=== PATIENT | female | born 1975 | race Caucasian/White ===

== ENCOUNTER 2019-12-13 13:14 | Outpatient (CLI) | payer OTHER, SELFPAY ==
--- NOTE | 2019-12-13 13:21 | ECG_ITS ---
Measurements Intervals [place] Rate: 62 P: 32 CO: 166 QRS: 50 QRSD: 109 T: 37 QT: 435 QTc: 443 Interpretive Statements SINUS RHYTHM LOW QRS VOLTAGE IN LIMB LEADS BORDERLINE R WAVE PROGRESSION, ANTERIOR LEADS BORDERLINE ECG Electronically Signed On 12-13-2019 15:06:40 CDT by Anthony Linares D.O.
== END 2019-12-13 13:15 | disposition home or self-care (01) ==
LOC: ANHCARD 13:18
PROVIDERS: PCP Family Medicine; Visit Provider Nurse Practitioner Family
DX: Z01.818 Encounter for other preprocedural examination (principal)
CPT/HCPCS: 93005

== ENCOUNTER 2020-01-29 09:38 | Outpatient (CLI) | payer OTHER, SELFPAY ==
--- NOTE | ~2020-01-29 | XR_ITS ---
EXAMINATION: XR abdomen/kub 1V INDICATION: Left ureteral stone TECHNIQUE: Supine views of the abdomen were obtained on 2 radiographs. COMPARISON: 12/06/2018 FINDINGS: There is a 9 mm stone in the left proximal ureter projecting between the left L2 and L3 tra nsverse processes. Stones measuring up to 4 mm are present in the lower pole of the left kidney. Ther e are surgical changes in the left upper quadrant. Cholecystectomy clips are noted in the right upper quadrant. The bowel gas pattern is normal. IMPRESSION: 1. 9 mm stone in the left proximal ureter. 2. Left nephrolithiasis. Reviewed, dictated and finalized at location A.
== END 2020-01-29 09:39 | disposition home or self-care (01) ==
LOC: ANHIMG 09:47
PROVIDERS: PCP Family Medicine; Visit Provider Nurse Practitioner Adult Health
DX: N20.1 Calculus of ureter (principal)
CPT/HCPCS: 74018

== ENCOUNTER 2020-01-30 01:06 | Outpatient (CLI) | payer OTHER, SELFPAY ==
[2020-01-30 18:39] LABS: SARS-CoV-2 RNA PCR Negative
== END 2020-01-30 01:07 | disposition home or self-care (01) ==
LOC: ANHCOVIDDT 01:07
PROVIDERS: PCP Family Medicine; Visit Provider Urology
DX: Z01.812 Encounter for preprocedural laboratory examination (principal); Z20.828 Contact with and (suspected) exposure to other viral communicable diseases
CPT/HCPCS: 87635; C9803; U0003

== ENCOUNTER 2020-02-01 01:52 | Day surgery (SDC) | payer OTHER, SELFPAY ==
[2020-01-29 14:24] VITALS: BMI 25.8
[2020-02-01] VITALS (8 sets, daily range): BP systolic 98–130; BP diastolic 50–82; PULSE 59–71; RESP 10–20; TEMP 36.2–36.4; O2SAT 97–100
--- NOTE | ~2020-02-01 | XR_ITS ---
EXAMINATION: XR abdomen/kub 1V DATE: 02/01/2020 06:43 INDICATION: Renal stone. TECHNIQUE: A supine view of the abdomen on 2 radiographs was obtained. COMPARISON: Abdomen radiographs 01/29/2020, CT abdomen 04/21/2018 FINDINGS: There are no dilated loops of bowel. Surgical clips in the right upper quadrant are likely from cholecystectomy. There are 2 mm and 1 mm stones in right kidney. There are 3 mm and 2 mm stones in left kidney. There is a 9 mm stone in proximal left ureter. IMPRESSION: 1. Stones in the kidneys and proximal left ureter. Reviewed, dictated and finalized at location A.
--- NOTE | 2020-02-01 07:20 | WPDHPUPDATE1 ---
History and Physical Update Update Date/Time: 02/01/20 07:20 History and Physical has been reviewed, including an updated exam of the patient. There are NO changes in the patient's condition. Risks, benefits, and alternatives have been discussed and questions answered. Patient agrees to proceed with procedure. ESWL of left ureteral calculus
[2020-02-01] MEDS: LACTATED RINGERS 1,000 ML 30 ML IV CONT (07:35)
--- NOTE | 2020-02-01 07:48 | WPDANESEPPF ---
Anes - Initial Pre Proc Eval Procedure: Operation Date: 02/01/20 09:00 Proposed Procedures p Left Ureteral Extracorporeal Shock Wave Lithotripsy, Possible Cystoscopy, Possible Left Stent Placement - Darion Hubbard MD Date/Time: 02/01/20 07:48 Surgeon: Darion Hubbard MD Pre Op Diagnosis: left ureteral stone Patient Data Age: 44 Gender: F Height: 5 ft 3 in Weight: 67.6 kg Last Vital Signs Temp 36.4 C 02/01/20 07:46 Pulse 70 02/01/20 07:46 Resp 16 02/01/20 07:46 BP 101/50 L 02/01/20 07:46 Pulse Ox 100 02/01/20 07:46 Allergies Allergy/AdvReac Type Severity Reaction Status Date / Time No Known Allergies Allergy Verified 02/01/20 07:19 Home Medications Medication Instructions Recorded Confirmed Type temazepam 15 mg capsule 15 mg PO DAILY PRN #30 cap 01/02/20 02/01/20 Rx calcium carbonate 168 mg PO DAILY 01/29/20 02/01/20 History escitalopram oxalate 20 mg PO HS 01/29/20 02/01/20 History estradiol 2 mg PO HS 01/29/20 02/01/20 History [id number]-vit K 1 cap PO DAILY 01/29/20 02/01/20 History [Bariatric Multivitamins] Laboratory Tests 02/01/20 07:33 PT Pending INR Pending APTT Pending Patient hx anesthesia problems: none Family hx anesthesia problems: none PMFSH Past Medical History Medical History Anxiety Bowel obstruction Surgical History Surgical History H/O hernia repair Family History Family History Mother Family history of premature coronary heart disease Hypertension Family history of diabetes mellitus in first degree relative Patient's mother is in good health, Onset Age: 42 Family history of congestive heart failure Grandparent Family history of lung cancer Father Patient's father is in good health, Onset Age: 50 Other Diabetes mellitus Family history of cardiovascular disease Family history of malignant neoplasm Social History Social History Smoking packs per day: 0.5 Smoking cigarettes per day: 10.0 Years smoked: 12 Smoking pack-years: 6.00 Smoking status: Current every day smoker Tobacco type: cigarettes and e-cigarettes/vaping Second hand tobacco smoke exposure: No Additional smoking assessment comments: quit smoking cigarette smoking 11years ago, currently uses vapor cigarette Alcohol intake: never Spiritual care concerns: No Anes - Eval Final PreProcedure Day of Procedure 02/01/20 07:48 Patient weight: overweight Heart: regular rate and rhythm Lungs: clear to auscultation Airway: Mallampati scale class II Neurological: alert and oriented Last oral intake: >/= 8 hours ASA classification: II Emergent: no Anesthetic plan: proceed Anesthesia type and monitoring: general LMA and standard monitoring Informed Consent: The patient's anesthetic plan and its attendant risks and benefits were discussed with the patient/family/POA. Questions were solicited and answers provided to the satisfaction of the patient/family/POA.
[2020-02-01 07:50] LABS: INR 0.9; Prothrombin Time 12.1 Seconds (11.1-14.7)
[2020-02-01 07:51] LABS: Partial Thromboplastin Time 27.8 SECONDS (22.3-36.8)
[2020-02-01] MEDS: ceFAZolin 2 GM/D5W 50 ML 2 GM/50 ML BAG IVPB (09:09)
--- NOTE | 2020-02-01 09:51 | PM.PROC ---
Procedure Note - Detailed Date of procedure: 02/01/20 Pre-op diagnosis: left ureteral stone Post-op diagnosis: same Procedure performed: ESWL left ureteral calculus Description of procedure: Patient is taken to the operative suite and correctly identified. Once anesthesia was obtained the stone in the left proximal ureter was visualized in both planes. Measured approximately 9 mm. Two thousand seven hundred fifty shocks were given to the stone. There appeared to be good fragmentation. As such no stent was placed at this time. Patient is taken recovery stable condition. She will follow up in 7-10 days with KUB. Anesthesia: GLMA Surgeon: Darion Hubbard MD Drains: No Packing: No Pathology: none sent Complications: No immediate complications Condition: stable Disposition: PACU
== END 2020-02-01 12:06 | disposition home or self-care (01) ==
PROVIDERS: PCP Family Medicine; Visit Provider Urology
PROC: (CPT 50590; principal; 2020-02-01 09:00)
DX: N20.1 Calculus of ureter (principal); F41.9 Anxiety disorder, unspecified; F17.290 Nicotine dependence, other tobacco product, uncomplicated
CPT/HCPCS: 50590; 36415; 74018; 85610; 85730; J0690; J1100; J2250; J2405; J2704; J3010; J7120

== ENCOUNTER 2020-02-13 11:21 | Outpatient (CLI) | payer OTHER, SELFPAY ==
--- NOTE | ~2020-02-13 | XR_ITS ---
XR abdomen/kub 1V 02/13/2020 11:44 Indication: Left ureteral stone Procedure: KUB Comparison: Comparison to multiple prior studies sequentially, with oldest reviewed study dated 05/08. Findings: There are bilateral renal stones. No definite stones are identified in the expected course of ureters. There are cholecystectomy clips. Bowel gas pattern nonobstructive. No acute osseous abnor mality. Impression: 1: Bilateral nephrolithiasis. Reviewed, dictated and finalized at location A. Impression: 1: Bilateral nephrolithiasis.
== END 2020-02-13 11:22 | disposition home or self-care (01) ==
PROVIDERS: PCP Family Medicine; Visit Provider Nurse Practitioner Adult Health
DX: N20.1 Calculus of ureter (principal); N20.0 Calculus of kidney
CPT/HCPCS: 74018

== ENCOUNTER 2020-02-21 13:59 | Outpatient (CLI) | payer OTHER, SELFPAY ==
--- NOTE | ~2020-02-21 | CT_ITS ---
EXAMINATION: CT abdomen pelvis wo con DATE: 02/21/2020 14:19 INDICATION: Left ureteral stone. TECHNIQUE: Computed tomography (CT) of the abdomen and pelvis was performed without intravenous contr ast. Automated exposure control and iterative reconstruction technique were employed. The dose-length product was 216.27 mGy-cm. COMPARISON: CT abdomen 04/21/18, abdomen radiographs 02/13/2020, 02/01/2020, 01/29/2020 FINDINGS: The visualized portions of the lung bases are clear without pneumonia or pleural effusion. The heart size is normal. There is a small pericardial effusion. The liver is normal. There are [place] es of cholecystectomy. The spleen, pancreas, and adrenal glands are normal. There are 3 stones in rig ht kidney measuring up to 3 mm. There are 4 stones in left kidney measuring up to 3 mm. There is mild left hydronephrosis and hydroureter. There are no dilated loops of bowel. There are surgical changes in the stomach. There is a small sliding hiatal hernia. There are no pathologically enlarged lymph n odes. There is no free intraperitoneal fluid. There is scarring in anterior abdominal wall. There is mild lumbar spondylosis. IMPRESSION: 1. Mild left hydronephrosis and hydroureter, likely from recently passed stone. 2. Bilateral nonobstructing kidney stones. Reviewed, dictated and finalized at location A. [employer]AD
== END 2020-02-21 14:00 | disposition home or self-care (01) ==
PROVIDERS: PCP Family Medicine; Visit Provider Nurse Practitioner Adult Health
DX: N13.2 Hydronephrosis with renal and ureteral calculous obstruction (principal)
CPT/HCPCS: 74176

== ENCOUNTER 2020-04-14 17:37 | Outpatient (CLI) | payer OTHER, SELFPAY ==
[2020-04-14 18:00] LABS: Basophils Absolute Auto 0.1 K/mm3 (0.0-0.1); Basophils Percent Auto 1.2 % (0.2-1.2); Eosinophils Absolute Auto 0.1 K/mm3 (0-0.3); Eosinophils Percent Auto 1.8 % (0-4.4); Hematocrit 44.9 % (37.0-47.0); Immature Granulocyte Absolute 0.01 K/mm3 (0.00-0.031); Immature Granulocyte Percent A 0.2 % (0-0.5); Lymphocytes Absolute Auto 2.81 K/mm3 (0.9-3.2); Lymphocytes Percent Auto 43.2 % (18.3-44.2); Mean Corpuscular HGB Conc 33.4 g/dl (32-36); Mean Corpuscular Hemoglobin 31.3 pg (26-34); Mean Corpuscular Volume 93.5 fl (80-100); Mean Platelet Volume 10.5 fl (7.4-10.4); Monocytes Absolute Auto 0.3 K/mm3 (0.1-0.6); Neutrophils Absolute Auto 3.2 K/mm3 (1.3-6.7); Neutrophils Percent Auto 49.6 % (45.5-73.1); Platelet Count Result 209 k/mm3 (150-375); Red Cell Distribution Width 11.9 % (11.5-14.5); White Blood Count 6.5 K/mm3 (4.5-10.0)
[2020-04-14 18:45] LABS: Alanine Aminotransferase 14 U/L (4-35); Albumin Level 4.3 g/dL (3.5-5.1); Alkaline Phosphatase 54 U/L (38-126); Amylase 83 U/L (30-110); Anion Gap 3 mmol/L (8-16); Aspartate Amino Transferase 27 U/L (14-36); Bilirubin,Total 0.4 mg/dL (0.2-1.3); Blood Urea Nitrogen 14 mg/dL (7-17); Calcium 9.2 mg/dL (8.4-10.2); Carbon Dioxide 31 mmol/L (22-30); Chloride 104 mmol/L (98-107); Estimated Glomerular Filt Rate > 60; Glucose 99 mg/dL (65-105); Lipase 157 U/L (23-300); Sodium 138 mmol/L (137-145)
[2020-04-14 18:48] LABS: Potassium 3.9 mmol/L (3.4-5.0)
== END 2020-04-14 17:38 | disposition home or self-care (01) ==
LOC: ANHLAB 17:38
PROVIDERS: PCP Family Medicine; Visit Provider Nurse Practitioner Family
DX: R10.9 Unspecified abdominal pain (principal)
CPT/HCPCS: 36415; 80053; 82150; 83690; 85025

== ENCOUNTER 2020-04-15 14:35 | Outpatient (CLI) | payer OTHER, SELFPAY ==
--- NOTE | ~2020-04-15 | CT_ITS ---
EXAMINATION: CT abdomen pelvis w con DATE: 04/15/2020 14:57 INDICATION: Right lower quadrant abdominal pain for 4 to 5 months. Left lower quadrant abdominal pain and tenderness. Nausea. Constipation. TECHNIQUE: Computed tomography (CT) of the abdomen and pelvis was performed with 100 cc Omnipaque 350 intravenous contrast. Automated exposure control and iterative reconstruction technique were employe d. Exam dose: 493.53 mGy-cm total exam DLP. COMPARISON: 02/21/[address] abdomen pelvis FINDINGS: Calcified right lower lobe pulmonary granuloma and right hilar calcified lymph nodes, consi stent with old pulmonary granulomatous disease. The lung bases are clear of infiltrate or consolidation. Normal heart size. No pericardial or pleural effusion. Very small sliding hiatal hernia. Status post gastric bypass surgery. Status post cholecystectomy. No bile duct or pancreatic duct dilatation. No hepatic, splenic, pancreatic, and adrenal space-occupying mass lesion. No renal space-occupying mass lesion is evident. There are several bilateral nonobstructing renal nyasia culi. No ureteral calculus or hydroureteronephrosis. There is moderate diffuse thickening of the urin jared bladder wall; cystitis is not excluded. Normal caliber of the abdominal aorta. No intraperitoneal or retroperitoneal or pelvic mass lesion or adenopathy or ascites is evident. The appendix is not definitively localized. There is no apparent evidence of appendicitis. No bowel obstruction, bowel wall thickening, pneumatosis or intraperitoneal free air is detected. Infraumbilical midline surgical scar. No suspicious osteolytic or osteoblastic lesions. IMPRESSION: Bilateral nonobstructive nephrolithiasis Moderate thickening of the urinary bladder wall; cystitis is not excluded. Recommend clinical correla tion. Very small sliding hiatal hernia Status post gastric bypass surgery Status post cholecystectomy Reviewed, dictated and finalized at Location A. Reviewed, dictated and finalized at location A. SCRIPTION COORDINATOR IMPRESSION: Bilateral nonobstructive nephrolithiasis Moderate thickening of the urinary bladder wall; cystitis is not excluded. Manoj mmend clinical correlation. Very small sliding hiatal hernia Status post gastric bypass surgery Status post cholecystectomy
== END 2020-04-15 14:36 | disposition home or self-care (01) ==
LOC: ANHIMG 14:36
PROVIDERS: PCP Family Medicine; Visit Provider Nurse Practitioner Family
DX: R10.814 Left lower quadrant abdominal tenderness (principal); R10.811 Right upper quadrant abdominal tenderness; N20.0 Calculus of kidney; Z90.49 Acquired absence of other specified parts of digestive tract; Z98.84 Bariatric surgery status
CPT/HCPCS: 74177; Q9967

== ENCOUNTER 2020-07-04 06:40 | Outpatient (CLI) | payer OTHER, SELFPAY ==
--- NOTE | ~2020-07-04 | US_ITS ---
EXAMINATION: US abdomen complete DATE: 07/04/2020 07:41 INDICATION: Right upper quadrant abdominal pain. TECHNIQUE: Multiple grayscale and Doppler ultrasound images of the abdomen were obtained. COMPARISON: CT abdomen and pelvis 04/15/2020 FINDINGS: The visualized portions of the head, body, and tail of the pancreas are normal. The liver i s normal without focal lesion. There is normal flow in main portal vein. The gallbladder is absent. T he common duct is normal and measures 4 mm. Abdominal aorta is normal in caliber. The inferior vena c candi is obscured. The kidneys are normal in size. The spleen is normal in size. IMPRESSION: 1. No etiology for the patient's symptoms. Reviewed, dictated and finalized at location A.
[2020-07-04 08:11] LABS: Alanine Aminotransferase 13 U/L (4-35); Albumin Level 4.2 g/dL (3.5-5.1); Alkaline Phosphatase 56 U/L (38-126); Anion Gap 2 mmol/L (8-16); Aspartate Amino Transferase 25 U/L (14-36); Bilirubin,Total 0.4 mg/dL (0.2-1.3); Blood Urea Nitrogen 13 mg/dL (7-17); Carbon Dioxide 32 mmol/L (22-30); Chloride 104 mmol/L (98-107); Estimated Glomerular Filt Rate > 60; Glucose 90 mg/dL (65-105); Potassium 3.9 mmol/L (3.4-5.0); Sodium 138 mmol/L (137-145)
[2020-07-04 08:19] LABS: Basophils Absolute Auto 0.1 K/mm3 (0.0-0.1); Basophils Percent Auto 1.2 % (0.2-1.2); Eosinophils Absolute Auto 0.2 K/mm3 (0-0.3); Eosinophils Percent Auto 2.6 % (0-4.4); Hematocrit 39.8 % (37.0-47.0); Hemoglobin 13.7 g/dL (12.0-15.0); Immature Granulocyte Absolute 0.02 K/mm3 (0.00-0.031); Immature Granulocyte Percent A 0.3 % (0-0.5); Lymphocytes Absolute Auto 3.25 K/mm3 (0.9-3.2); Lymphocytes Percent Auto 49.8 % (18.3-44.2); Mean Corpuscular HGB Conc 34.4 g/dl (32-36); Mean Corpuscular Hemoglobin 31.1 pg (26-34); Mean Corpuscular Volume 90.5 fl (80-100); Mean Platelet Volume 10.5 fl (7.4-10.4); Monocytes Absolute Auto 0.4 K/mm3 (0.1-0.6); Neutrophils Absolute Auto 2.6 K/mm3 (1.3-6.7); Neutrophils Percent Auto 40.1 % (45.5-73.1); Platelet Count Result 217 k/mm3 (150-375); Red Cell Distribution Width 12.3 % (11.5-14.5); White Blood Count 6.5 K/mm3 (4.5-10.0)
== END 2020-07-04 06:41 | disposition home or self-care (01) ==
LOC: ANHIMG 06:43
PROVIDERS: PCP Family Medicine; Visit Provider Nurse Practitioner Family
DX: R10.11 Right upper quadrant pain (principal); R10.811 Right upper quadrant abdominal tenderness
CPT/HCPCS: 36415; 76700; 80053; 85025

== ENCOUNTER 2020-08-22 02:06 | Emergency (ER) | payer OTHER, SELFPAY ==
--- NOTE | ~2020-08-22 | CT_ITS ---
EXAMINATION: CT abdomen pelvis w con INDICATION: Abdominal pain TECHNIQUE: Computed tomographic images of the abdomen and pelvis were obtained after the administrati on of 100 cc of Omnipaque 350 intravenous contrast. The dose-length product (DLP) was 440.70 mGy-cm. Automated exposure control and iterative reconstruction technique were employed. COMPARISON: 04/15/2020 FINDINGS: Calcified pulmonary nodules and calcified right lymph nodes are consistent with old granulo matous disease. The heart size is normal. Calcified coronary artery atherosclerosis is noted. There i s a small sliding hiatal hernia. Surgical changes in the stomach likely reflect gastric sleeve proced ure. The gallbladder is surgically absent. There is mild enlargement of the common bile duct and cent ral intrahepatic ducts which is likely due to post cholecystectomy state. The liver, spleen, pancreas , and adrenal glands are normal. Nonobstructing stones of the kidneys measure up to 4 mm on the right . No pathologically enlarged abdominal or pelvic lymph nodes are identified. There is no free intrape ritoneal gas or evidence of bowel obstruction. There is a greater than normal number of fluid-filled, nondistended small bowel loops. IMPRESSION: 1. CT findings suggestive of enteritis. 2. Bilateral nonobstructing nephrolithiasis. Reviewed, dictated and finalized at location A.
[2020-08-22 02:13] VITALS: BP 165/86; PULSE 85; RESP 12; TEMP 36.6; O2SAT 99
[2020-08-22 02:20] VITALS: BP 153/91; PULSE 82; RESP 16; TEMP 36.6; O2SAT 98
--- NOTE | 2020-08-22 02:22 | PC.NURSE ---
Pt presents to ED with complaints of abdominal pain that onset on Tuesday. Pt states she has been experiencing nausea and sharp abdominal pain that radiates to right flank. Pt notes with extensive GI hx that includes kidney stones, frequent UTI and x1 bowel obstruction. EDMD presented to bedside. Pain is noted to be in generalized abdomen and radiating to right back. Pt states she has hx of kidney stones and has stones that have not passed at this time. Pt states abdomen is tender with palpation. Pain rated 5/10 at this time. Denies sick contacts, fever, chills, chest pain and sob at this time. Urine specimen collected as pt was able to ambulate to restroom with steady gait. Specimens sent to lab. Call button and personal items within reach. Pt advised to press call button for assistance. At this time pt is alert and oriented x4 with stable vitals and in no obvious distress; currently on phone texting.
--- NOTE | 2020-08-22 02:27 | ED.GENADULT ---
HPI - General Adult General Chief complaint: Abdominal Pain Stated complaint: abd pain with naurea Time Seen by Provider: 08/22/20 02:10 History of Present Illness HPI narrative: Patient 44-year-old female presents the emergency department with chief complaint of abdominal pain. Patient reports that yesterday she started having a cramping-like feeling over her entire abdomen reports that is not improved by anything nor is it worsened by anything. The patient states she had to try to all herself up last night in bed to try to hopefully get the pain the past which ultimately she was able to finally fall asleep. Patient reports has had some nausea with this but denies vomiting. Patient denies diarrhea the patient does report that she is a prior surgical history for an exploratory laparotomy and a hernia repair a gastric sleeve. The patient states that she is also had a prior small bowel obstruction before in the past she also reports that she has history of kidney stones patient states that this 1 feels different from her kidney stones in the past. Related Data Home Medications Medication Instructions Recorded Confirmed Bariatric Multivitamins 1 cap PO DAILY 01/29/20 07/04/20 calcium carbonate 168 mg PO DAILY 01/29/20 07/04/20 escitalopram oxalate 20 mg PO HS 01/29/20 07/04/20 estradiol 2 mg PO HS 01/29/20 07/04/20 oxybutynin chloride 10 mg 10 mg PO DAILY 07/03/20 07/04/20 tablet,extended release 24 hr Allergies Allergy/AdvReac Type Severity Reaction Status Date / Time No Known Allergies Allergy Verified 08/22/20 04:46 Review of Systems Review of Systems: Narrative: A 10 system review of systems was completed on the patient and is negative except for what is stated in the HPI. Nursing and ancillary documentation was reviewed. [facility] Past Medical History Medical History Acute bronchitis due to infection Acute left ankle pain Acute pain of left knee Acute pain of right knee Anxiety Arthralgia of temporomandibular joint, unspecified side BMI 26.0-26.9,adult Body mass index [BMI] 45.0-49.9, adult (02/02/16) Bowel obstruction Dietary counseling and surveillance (08/18/17) Dyspnea on exertion Elevated glucose Elevated sed rate Encounter for screening for diabetes mellitus Epigastric abdominal pain Essential (primary) hypertension Excessive sweating Family hx of colon cancer Fatty liver Foreign body in left ear, initial encounter Ganglion cyst Gastroenteritis Hiatal hernia Incisional hernia with obstruction but no gangrene Incisional hernia without obstruction or gangrene Infection Insomnia Irritable bowel syndrome with diarrhea Left hand pain Left wrist pain Low vitamin D level Lung nodule Mass of left foot Morbid obesity Myalgia and myositis Nodule of finger of right hand Numbness of left hand SHANI (obstructive sleep apnea) Other symptoms and signs involving emotional state Paresthesia Prediabetes Renal cyst Right foot pain Right ovarian cyst Right-sided chest wall pain Routine physical examination RUQ pain Screening for colon cancer Screening for lipid disorders Screening for thyroid disorder Tension headache Thinning hair Umbilical hernia without obstruction and without gangrene Urinary symptom or sign Vitamin B 12 deficiency Weight gain Surgical History Surgical History H/O hernia repair Family History Family History Mother Family history of premature coronary heart disease Hypertension Family history of diabetes mellitus in first degree relative Patient's mother is in good health, Onset Age: 42 Family history of congestive heart failure Grandparent Family history of lung cancer Father Patient's father is in good health, Onset Age: 50 Sibling No problems noted.
[2020-08-22] MEDS: SODIUM CHLORIDE 0.9% IV 1,000 ML 999 ML IV CONT (02:39)
[2020-08-22] MEDS: ONDANSETRON INJ 4 MG/2 ML VIAL IV PUSH (02:41)
[2020-08-22] MEDS: DICYCLOMINE HCL INJ 20 MG/2 ML VIAL IM (02:41)
[2020-08-22] MEDS: MORPHINE SULFATE (*CRX) 4 MG/ML INJ IV PUSH ×2 (02:41→03:28)
[2020-08-22 02:59] LABS: Basophils Absolute Auto 0.1 K/mm3 (0.0-0.1); Basophils Percent Auto 1.1 % (0.2-1.2); Eosinophils Absolute Auto 0.2 K/mm3 (0-0.3); Hematocrit 44.3 % (37.0-47.0); Hemoglobin 15.3 g/dL (12.0-15.0); Immature Granulocyte Absolute 0.02 K/mm3 (0.00-0.031); Immature Granulocyte Percent A 0.3 % (0-0.5); Lymphocytes Absolute Auto 3.49 K/mm3 (0.9-3.2); Lymphocytes Percent Auto 43.8 % (18.3-44.2); Mean Corpuscular HGB Conc 34.5 g/dl (32-36); Mean Corpuscular Hemoglobin 31.8 pg (26-34); Mean Corpuscular Volume 92.1 fl (80-100); Mean Platelet Volume 10.4 fl (7.4-10.4); Monocytes Absolute Auto 0.4 K/mm3 (0.1-0.6); Monocytes Percent Auto 5.1 % (2.6-8.5); Neutrophils Absolute Auto 3.8 K/mm3 (1.3-6.7); Neutrophils Percent Auto 47.7 % (45.5-73.1); Platelet Count Result 218 k/mm3 (150-375); Red Blood Count 4.81 M/mm3 (4.2-5.4); Red Cell Distribution Width 11.8 % (11.5-14.5)
[2020-08-22 03:10] LABS: Add Urine Microscopic? NO; Appearance Urine Clear (Clear); Bacteria Urine 2+ /hpf; Bilirubin Urine Negative (Negative); Blood Urine Negative (Negative); Color Urine Straw (Yellow); Glucose Urine UA Negative (Negative); Ketones Urine Negative (Negative); Leukocyte Esterase Ur Negative LEU/UL (Negative); Nitrate Urine Negative (Negative); Protein Urine Negative (Negative); RBC Urine 0-2 /hpf (0-2); Squamous Epithelial Cell Urine Rare /hpf (Few); Urobilinogen Urine Negative mg/dL (<2.0); WBC Urine 0-3 /hpf
[2020-08-22 03:11] LABS: Alanine Aminotransferase 14 U/L (4-35); Albumin Level 4.4 g/dL (3.5-5.1); Alkaline Phosphatase 57 U/L (38-126); Anion Gap 5 mmol/L (8-16); Aspartate Amino Transferase 25 U/L (14-36); Bilirubin,Total 0.3 mg/dL (0.2-1.3); Blood Urea Nitrogen 13 mg/dL (7-17); Calcium 9.3 mg/dL (8.4-10.2); Carbon Dioxide 30 mmol/L (22-30); Chloride 106 mmol/L (98-107); Estimated Glomerular Filt Rate > 60; Glucose 97 mg/dL (65-105); Lactic Acid Reflex 1.1 mmol/L (0.7-2.1); Lipase 180 U/L (23-300); Potassium 3.8 mmol/L (3.4-5.0); Sodium 141 mmol/L (137-145)
[2020-08-22 03:13] LABS: Specific Grav Ur 1.003 (1.001-1.035)
--- NOTE | 2020-08-22 03:13 | PC.NURSE ---
Pt resting on cart in its lowest position with call button and personal items within reach. No complaints or concerns voiced at this time. Pain has improved from 8/10 and is now 6/10; will inform EDMD that pain persists. Vitals remain stable and pt is alert and oriented x4. Advised to press call button for assistance.
[2020-08-22 03:17] VITALS: BP 125/85; PULSE 56; RESP 12; O2SAT 97
--- NOTE | 2020-08-22 03:17 | PC.NURSE ---
EDMD notified of persistent pain and states he will place orders.
--- NOTE | 2020-08-22 03:29 | PC.NURSE ---
Medication administered and pt resting on cart in its lowest position with no complaints or concerns voiced at this time. Call button and personal items within reach; advised to press call button for assistance.
--- NOTE | 2020-08-22 03:44 | PC.NURSE ---
Pt to radiology via cart.
--- NOTE | 2020-08-22 03:55 | PC.NURSE ---
Pt returned from radiology. Call button and personal items within reach. Advised to pres call button for assistance.
[2020-08-22] MEDS: HYDROmorphone HCL INJ (*CRX) 1 MG/ML SYR IV PUSH (04:10)
[2020-08-22 04:21] VITALS: BP 123/74; PULSE 73; RESP 17; O2SAT 97
--- NOTE | 2020-08-22 04:23 | PC.NURSE ---
Pt resting on cart in its lowest position with call button and personal items within reach. Pt remains alert and oriented x4 with stable vitals and is not in any obvious distress at this time. Advised to press call button for assistance.
--- NOTE | 2020-08-22 04:42 | PC.NURSE ---
EDMD at bedside to update pt on poc and all questions and concerns addressed. Pt states pain has is improved and is now rated 2/10 at this time; no complaints or concerns voiced. Continues resting on cart in its lowest position with call button and personal items within reach. Advised to press call button for assistance.
[2020-08-22 05:18] VITALS: BP 139/92; PULSE 74; RESP 16; TEMP 36.7; O2SAT 99
[2020-08-22 05:21] VITALS: BP 139/92; PULSE 74; RESP 16; TEMP 36.7; O2SAT 99
== END 2020-08-22 05:27 | disposition home or self-care (01) ==
PROVIDERS: Emergency Provider Emergency Medicine; PCP Family Medicine
DX: K56.7 Ileus, unspecified (principal); K29.00 Acute gastritis without bleeding; R10.84 Generalized abdominal pain; F17.290 Nicotine dependence, other tobacco product, uncomplicated; I10 Essential (primary) hypertension; K58.0 Irritable bowel syndrome with diarrhea; E66.01 Morbid (severe) obesity due to excess calories; G47.33 Obstructive sleep apnea (adult) (pediatric); R73.03 Prediabetes; E53.8 Deficiency of other specified B group vitamins
CPT/HCPCS: 36415; 74177; 80053; 81003; 81025; 83605; 83690; 85025; 96361; 96372; 96374; 96375; 96376; 99284; J0500; J1170; J2270; J2405; J7030; Q9967

== ENCOUNTER 2020-11-17 01:03 | Day surgery (SDC) | payer OTHER, SELFPAY ==
[2020-11-04 08:21] VITALS: BMI 26.5
[2020-11-17 07:46] VITALS: BP 127/61; PULSE 59; RESP 16; TEMP 36.3; O2SAT 100
[2020-11-17] MEDS: LACTATED RINGERS 1,000 ML 150 ML IV CONT (07:55)
--- NOTE | 2020-11-17 08:00 | WPDANESEPPF ---
Anes - Initial Pre Proc Eval Procedure: Operation Date: 11/17/20 08:30 Proposed Procedures p Esophagogastroduodenoscopy - Darren Banks MD Date/Time: 11/17/20 08:00 Surgeon: Darren Banks MD Pre Op Diagnosis: nausea, abnormal CAT scan, Patient Data Age: 45 Gender: F Height: 1.6 m Weight: 70.9 kg Last Vital Signs Temp 36.3 C L 11/17/20 07:46 Pulse 59 L 11/17/20 07:46 Resp 16 11/17/20 07:46 BP 127/61 11/17/20 07:46 Pulse Ox 100 11/17/20 07:46 Allergies Allergy/AdvReac Type Severity Reaction Status Date / Time No Known Allergies Allergy Verified 11/17/20 07:45 Home Medications Medication Instructions Recorded Confirmed Type Bariatric Multivitamins 1 cap PO DAILY 01/29/20 11/17/20 History calcium carbonate 168 mg PO DAILY 01/29/20 11/17/20 History escitalopram oxalate 20 mg PO HS 01/29/20 11/17/20 History estradiol 2 mg PO HS 01/29/20 11/17/20 History temazepam 15 mg capsule 15 mg PO DAILY PRN #30 cap 06/09/20 11/17/20 Rx oxybutynin chloride 10 mg 10 mg PO DAILY 07/03/20 11/17/20 History tablet,extended release 24 hr dicyclomine 20 mg PO QID PRN #20 tablet 08/22/20 11/17/20 Rx ondansetron 4 mg PO Q8H PRN #20 tablet 08/22/20 11/17/20 Rx omeprazole 20 mg capsule,delayed 20 mg PO DAILY #30 cap 09/01/20 11/17/20 Rx release Patient hx anesthesia problems: none Family hx anesthesia problems: none PMFSH Past Medical History Medical History Acute bronchitis due to infection Acute left ankle pain Acute pain of left knee Acute pain of right knee Anxiety Arthralgia of temporomandibular joint, unspecified side BMI 26.0-26.9,adult Body mass index [BMI] 45.0-49.9, adult (02/02/16) Bowel obstruction Dietary counseling and surveillance (08/18/17) Dyspnea on exertion Elevated glucose Elevated sed rate Encounter for screening for diabetes mellitus Epigastric abdominal pain Essential (primary) hypertension Excessive sweating Family hx of colon cancer Fatty liver Foreign body in left ear, initial encounter Ganglion cyst Gastroenteritis Hiatal hernia Incisional hernia with obstruction but no gangrene Incisional hernia without obstruction or gangrene Infection Insomnia Irritable bowel syndrome with diarrhea Left hand pain Left wrist pain Low vitamin D level Lung nodule Mass of left foot Morbid obesity Myalgia and myositis Nodule of finger of right hand Numbness of left hand SHANI (obstructive sleep apnea) Other symptoms and signs involving emotional state Overweight with body mass index (BMI) 25.0-29.9 Paresthesia Prediabetes Renal cyst Right foot pain Right ovarian cyst Right-sided chest wall pain Routine physical examination RUQ pain Screening for colon cancer Screening for lipid disorders Screening for thyroid disorder Tension headache Thinning hair Umbilical hernia without obstruction and without gangrene Urinary symptom or sign Vitamin B 12 deficiency Weight gain Surgical History Surgical History (Updated 11/17/20 @ 08:00 by Bradford Colón MD) H/O hernia repair History of gastric surgery Family History Family History Mother Family history of premature coronary heart disease Hypertension Family history of diabetes mellitus in first degree relative Patient's mother is in good health, Onset Age: 42 Family history of congestive heart failure Grandparent Family history of lung cancer Father Patient's father is in good health, Onset Age: 50 Sibling No problems noted. Other Diabetes mellitus Family history of cardiovascular disease Family history of malignant neoplasm Social History Social History Smoking packs per day: 0.5 Smoking cigarettes per day: 10.0 Years smoked: 12 Smoking pack-years: 6.00 Smoking status: F
--- NOTE | 2020-11-17 08:26 | PM.HPGS ---
History of Present Illness History of Present Illness Consent: Risks, benefits, and alternatives have been discussed and questions answered. Patient agrees to proceed with procedure. Chief complaint: nausea, abnormal CAT scan, Narrative: Kesha Downey is a 45 year old female with intermittent upper abdominal pain and nausea, she had cholecystectomy and gastric sleeve, using omeprazole and zofran, denies smoking. Review of Systems Constitutional: Constitutional: Denies headache(s) and Denies weakness Eyes: Eyes: Denies blurry vision ENT: Reports Normal hearing present, Denies headache(s) and Denies neck pain Cardiovascular: Cardiovascular: Denies chest pain and Denies dyspnea Respiratory: Respiratory: Denies dyspnea Gastrointestinal: Gastrointestinal: Reports no additional gastrointestinal complaints Genitourinary: Genitourinary: Denies dysuria Musculoskeletal: Musculoskeletal: Denies neck pain Integumentary/Breasts: Skin/Breast: Denies dry skin Neurologic: Reports Normal hearing present, Denies headache(s) and Denies weakness Psychiatric: Psychiatric: Denies anxiety Endocrine: Endocrine: Denies change in body appearance Hematologic/Lymphatic: Hematologic/Lymphatic: Denies easy bleeding Allergic/Immunologic: Allergic/Immunologic: Denies urticaria PMFSH Past Medical History Medical History Acute bronchitis due to infection Acute left ankle pain Acute pain of left knee Acute pain of right knee Anxiety Arthralgia of temporomandibular joint, unspecified side BMI 26.0-26.9,adult Body mass index [BMI] 45.0-49.9, adult (02/02/16) Bowel obstruction Dietary counseling and surveillance (08/18/17) Dyspnea on exertion Elevated glucose Elevated sed rate Encounter for screening for diabetes mellitus Epigastric abdominal pain Essential (primary) hypertension Excessive sweating Family hx of colon cancer Fatty liver Foreign body in left ear, initial encounter Ganglion cyst Gastroenteritis Hiatal hernia Incisional hernia with obstruction but no gangrene Incisional hernia without obstruction or gangrene Infection Insomnia Irritable bowel syndrome with diarrhea Left hand pain Left wrist pain Low vitamin D level Lung nodule Mass of left foot Morbid obesity Myalgia and myositis Nodule of finger of right hand Numbness of left hand SHANI (obstructive sleep apnea) Other symptoms and signs involving emotional state Overweight with body mass index (BMI) 25.0-29.9 Paresthesia Prediabetes Renal cyst Right foot pain Right ovarian cyst Right-sided chest wall pain Routine physical examination RUQ pain Screening for colon cancer Screening for lipid disorders Screening for thyroid disorder Tension headache Thinning hair Umbilical hernia without obstruction and without gangrene Urinary symptom or sign Vitamin B 12 deficiency Weight gain Surgical History Surgical History (Updated 11/17/20 @ 08:00 by Bradford Colón MD) H/O hernia repair History of gastric surgery Family History Family History Mother Family history of premature coronary heart disease Hypertension Family history of diabetes mellitus in first degree relative Patient's mother is in good health, Onset Age: 42 Family history of congestive heart failure Grandparent Family history of lung cancer Father Patient's father is in good health, Onset Age: 50 Sibling No problems noted. Other Diabetes mellitus Family history of cardiovascular disease Family history of malignant neoplasm Social History Social History Smoking packs per day: 0.5 Smoking cigarettes per day: 10.0 Years smoked: 12 Smoking pack-years: 6.00 Smoking status: Former smoker Tobacco type: cigarettes Second hand tobacco smoke exposure: No Additional smoking asse
[2020-11-17] MEDS: BENZOCAINE (*SP) 60 ML SPRAY CAN (HURRICAINE) 1 SPRAY MUCOUS MEM (08:31)
[2020-11-17 08:46] VITALS: BP 95/56; PULSE 57; RESP 21; O2SAT 100
[2020-11-17 08:56] VITALS: BP 93/53; PULSE 55; RESP 19; O2SAT 100
[2020-11-17 09:06] VITALS: BP 101/63; PULSE 52; RESP 16; O2SAT 100
== END 2020-11-17 09:18 | disposition home or self-care (01) ==
PROVIDERS: PCP Family Medicine; Visit Provider Internal Medicine Gastroenterology
PROC: 0DJ08ZZ Inspection of Upper Intestinal Tract, Via Natural or Artificial Opening Endoscopic (ICD-10-PCS; CPT 43235; principal; 2020-11-17 08:30)
DX: K29.50 Unspecified chronic gastritis without bleeding (principal); R11.0 Nausea; R10.11 Right upper quadrant pain; K44.9 Diaphragmatic hernia without obstruction or gangrene; K22.2 Esophageal obstruction; Z98.84 Bariatric surgery status; Z90.49 Acquired absence of other specified parts of digestive tract; I10 Essential (primary) hypertension; Z80.0 Family history of malignant neoplasm of digestive organs; K76.0 Fatty (change of) liver, not elsewhere classified; K58.0 Irritable bowel syndrome with diarrhea; E55.9 Vitamin D deficiency, unspecified; G47.33 Obstructive sleep apnea (adult) (pediatric); R73.03 Prediabetes; E53.8 Deficiency of other specified B group vitamins; F41.9 Anxiety disorder, unspecified; F17.290 Nicotine dependence, other tobacco product, uncomplicated
CPT/HCPCS: 43239; 43249; 88305; J2001; J2704; J7120

== ENCOUNTER 2020-12-23 07:45 | Outpatient (CLI) | payer OTHER, SELFPAY ==
--- NOTE | ~2020-12-23 | XR_ITS ---
EXAMINATION: XR barium swallow w SBFT DATE: 12/23/2020 09:20 INDICATION: Right upper quadrant abdominal pain. TECHNIQUE: The patient drank thick barium, gas-producing crystals, and thin barium. Fluoroscopy of th e esophagus, stomach, and small bowel was performed. Fluoroscopy exposure time was 0.7 minutes. Radio graphs of the abdomen were obtained. The total number of images was 191. COMPARISON: CT abdomen and pelvis 08/22/20 FINDINGS: DOUBLE CONTRAST ESOPHAGRAM: There is no mass or stricture of the esophagus. Esophageal motility is normal. There is a small slidi ng hiatal hernia. There are changes of gastric sleeve procedure. SMALL BOWEL SERIES: The small bowel shows a normal folding pattern. Transit time to the colon was 45 minutes. Surgical cl ips in the right upper quadrant are likely from cholecystectomy. IMPRESSION: 1. Small sliding hiatal hernia. 2. Gastric sleeve procedure. 3. Normal small bowel. Reviewed, dictated and finalized at location A.
== END 2020-12-23 07:46 | disposition home or self-care (01) ==
PROVIDERS: PCP Family Medicine; Visit Provider Nurse Practitioner Family
DX: R10.11 Right upper quadrant pain (principal); R93.3 Abnormal findings on diagnostic imaging of other parts of digestive tract; Z98.84 Bariatric surgery status; K44.9 Diaphragmatic hernia without obstruction or gangrene
CPT/HCPCS: 74240

== ENCOUNTER 2021-01-26 00:04 | Emergency (ER) | payer OTHER, SELFPAY ==
--- NOTE | ~2021-01-26 | CT_ITS ---
EXAMINATION: CT abdomen pelvis wo con DATE: 01/26/2021 00:41 INDICATION: Flank pain. History of renal stones. TECHNIQUE: Computed tomography (CT) of the abdomen and pelvis was performed without intravenous contr ast. The dose-length product was 203.53 mGy-cm. Automated exposure control and iterative reconstructi on technique were employed. COMPARISON: CT dated 08/22/2020. FINDINGS: Lung bases are unremarkable. No significant pleural or pericardial effusion. Heart size is normal. Small hiatal hernia with surgical changes of the stomach. Status post cholecystectomy. Splenomegaly. There are nonobstructing bilateral renal stones. There is a 4 mm distal left ureteral stone in the pelvis with moderate left hydronephrosis. There are cholecys tectomy clips. There is bladder wall thickening diffusely. No free fluid or free air. There are surgi nyasia changes in the anterior abdominal wall. No acute osseous abnormality. IMPRESSION: 1. Distal left ureteral stone in the pelvis measuring 4 mm with moderate hydronephrosis. 2: Nonobstructing bilateral nephrolithiasis. 3: Nonspecific circumferential bladder wall thickening. Cannot exclude cystitis. Recommend correlati on with urinalysis. Reviewed, dictated and finalized at location A. IMPRESSION: 1. Distal left ureteral stone in the pelvis measuring 4 mm with moderate hydron ephrosis. 2: Nonobstructing bilateral nephrolithiasis. 3: Nonspecific circumferential bladder wall thickening. Cannot exclude cystiti s. Recommend correlation with urinalysis.
--- NOTE | 2021-01-26 00:21 | ED.GENADULT ---
HPI - General Adult General Chief complaint: Abdominal Pain Stated complaint: Left flank pain Time Seen by Provider: 01/26/21 00:14 History of Present Illness HPI narrative: Patient 45-year-old female presents to emergency department chief complaint of flank pain and abdominal pain. The patient reports that she has had prior history of kidney stones is required lithotripsy before in the past. Patient states that earlier this week she started having some suprapubic pressure and noticed that it was burning whenever she urinated the patient saw her primary care physician who started her on antibiotics and reports tonight she started having severe flank pain nausea. Patient reports that he was unable to get comfortable and was pacing around the room. Related Data Home Medications Medication Instructions Recorded Confirmed Bariatric Multivitamins 1 cap PO DAILY 01/29/20 01/21/21 calcium carbonate 168 mg PO DAILY 01/29/20 01/21/21 escitalopram oxalate 20 mg PO HS 01/29/20 01/21/21 estradiol 2 mg PO HS 01/29/20 01/21/21 oxybutynin chloride 10 mg 10 mg PO DAILY 07/03/20 01/21/21 tablet,extended release 24 hr Allergies Allergy/AdvReac Type Severity Reaction Status Date / Time No Known Allergies Allergy Verified 01/21/21 10:35 Review of Systems Review of Systems: A 10 system review of systems was completed on the patient and is negative except for what is stated in the HPI. Nursing and ancillary documentation was reviewed. [facility] Past Medical History Medical History Acute bronchitis due to infection Acute left ankle pain Acute pain of left knee Acute pain of right knee Anxiety Arthralgia of temporomandibular joint, unspecified side BMI 26.0-26.9,adult Body mass index [BMI] 45.0-49.9, adult (02/02/16) Bowel obstruction Dietary counseling and surveillance (08/18/17) Dyspnea on exertion Elevated glucose Elevated sed rate Encounter for screening for diabetes mellitus Epigastric abdominal pain Essential (primary) hypertension Excessive sweating Family hx of colon cancer Fatty liver Foreign body in left ear, initial encounter Ganglion cyst Gastroenteritis Hiatal hernia Incisional hernia with obstruction but no gangrene Incisional hernia without obstruction or gangrene Infection Insomnia Irritable bowel syndrome with diarrhea Left hand pain Left wrist pain Low vitamin D level Lung nodule Mass of left foot Morbid obesity Myalgia and myositis Nodule of finger of right hand Numbness of left hand SHANI (obstructive sleep apnea) Other symptoms and signs involving emotional state Overweight with body mass index (BMI) 25.0-29.9 Paresthesia Prediabetes Renal cyst Right foot pain Right ovarian cyst Right-sided chest wall pain Routine physical examination RUQ pain Screening for colon cancer Screening for lipid disorders Screening for thyroid disorder Tension headache Thinning hair Umbilical hernia without obstruction and without gangrene Urinary symptom or sign Vitamin B 12 deficiency Weight gain Surgical History Surgical History H/O hernia repair History of gastric surgery Family History Family History Mother Family history of premature coronary heart disease Hypertension Family history of diabetes mellitus in first degree relative Patient's mother is in good health, Onset Age: 42 Family history of congestive heart failure Grandparent Family history of lung cancer Father Patient's father is in good health, Onset Age: 50 Sibling Hypertension Obesity Other Diabetes mellitus Family history of cardiovascular disease Family history of malignant neoplasm Social History Social History Smoking packs per day: 0.5 Smoking
[2021-01-26 01:00] LABS: Basophils Absolute Auto 0.1 K/mm3 (0.0-0.1); Basophils Percent Auto 1.1 % (0.2-1.2); Eosinophils Absolute Auto 0.2 K/mm3 (0-0.3); Eosinophils Percent Auto 2.4 % (0-4.4); Hemoglobin 13.1 g/dL (12.0-15.0); Immature Granulocyte Absolute 0.01 K/mm3 (0.00-0.031); Immature Granulocyte Percent A 0.2 % (0-0.5); Lymphocytes Absolute Auto 2.84 K/mm3 (0.9-3.2); Lymphocytes Percent Auto 46.1 % (18.3-44.2); Mean Corpuscular HGB Conc 34.5 g/dl (32-36); Mean Corpuscular Hemoglobin 31.7 pg (26-34); Mean Platelet Volume 10.3 fl (7.4-10.4); Monocytes Absolute Auto 0.3 K/mm3 (0.1-0.6); Monocytes Percent Auto 5.5 % (2.6-8.5); Neutrophils Absolute Auto 2.8 K/mm3 (1.3-6.7); Neutrophils Percent Auto 44.7 % (45.5-73.1); Platelet Count Result 198 k/mm3 (150-375); Red Blood Count 4.13 M/mm3 (4.2-5.4); Red Cell Distribution Width 11.7 % (11.5-14.5); White Blood Count 6.2 K/mm3 (4.5-10.0)
[2021-01-26 01:13] LABS: Add Urine Microscopic? YES; Appearance Urine Clear (Clear); Bacteria Urine Trace /hpf; Bilirubin Urine Negative (Negative); Blood Urine 1+ (Negative); Color Urine Yellow (Yellow); Glucose Urine UA Negative (Negative); Ketones Urine Negative (Negative); Leukocyte Esterase Ur Trace LEU/UL (Negative); Mucus Urine Rare /lpf; Nitrate Urine Negative (Negative); Protein Urine 1+ mg/dL (Negative); RBC Urine >75 /hpf (0-2); Specific Grav Ur 1.021 (1.001-1.035); Squamous Epithelial Cell Urine Occasional /hpf (Few); Urobilinogen Urine Negative mg/dL (<2.0); WBC Urine 31-50 /hpf
[2021-01-26] MEDS: MORPHINE SULFATE (*CRX) 4 MG/ML INJ IV PUSH (01:16)
[2021-01-26] MEDS: SODIUM CHLORIDE 0.9% IV 1,000 ML 999 ML IV CONT (01:16)
[2021-01-26 01:17] VITALS: BP 130/78; PULSE 77; RESP 18; TEMP 36.7; O2SAT 100
[2021-01-26] MEDS: ONDANSETRON INJ 4 MG/2 ML VIAL IV PUSH (01:17)
[2021-01-26 01:22] LABS: Alanine Aminotransferase 18 U/L (4-35); Albumin Level 4.5 g/dL (3.5-5.1); Alkaline Phosphatase 58 U/L (38-126); Anion Gap 7 mmol/L (8-16); Aspartate Amino Transferase 37 U/L (14-36); Bilirubin,Total 0.5 mg/dL (0.2-1.3); Blood Urea Nitrogen 17 mg/dL (7-17); Carbon Dioxide 29 mmol/L (22-30); Chloride 103 mmol/L (98-107); Estimated CRCL calculation 104 ml/min; Estimated Glomerular Filt Rate > 60; Glucose 128 mg/dL (65-110); Lipase 250 U/L (23-300); Sodium 139 mmol/L (137-145)
[2021-01-26] MEDS: HYDROmorphone HCL INJ (*CRX) 1 MG/ML SYR IV PUSH ×2 (02:25→03:52)
[2021-01-26 03:00] VITALS: BP 126/70; PULSE 77; RESP 18; O2SAT 99
[2021-01-26 03:53] VITALS: BP 130/70; PULSE 77; RESP 18; O2SAT 99
== END 2021-01-26 04:06 | disposition home or self-care (01) ==
PROVIDERS: Emergency Provider Emergency Medicine; PCP Family Medicine
DX: N20.0 Calculus of kidney (principal); N39.0 Urinary tract infection, site not specified; F17.210 Nicotine dependence, cigarettes, uncomplicated; Z87.442 Personal history of urinary calculi
CPT/HCPCS: 36415; 74176; 80053; 81001; 81025; 83690; 85025; 87086; 87147; 87181; 87186; 96361; 96365; 96375; 96376; 99284; J0696; J1170; J2270; J2405; J7030

== ENCOUNTER 2021-01-29 00:17 | Day surgery (SDC) | payer OTHER, SELFPAY ==
[2021-01-28 12:30] VITALS: BMI 27.4
[2021-01-29] VITALS (8 sets, daily range): BP systolic 100–121; BP diastolic 55–72; PULSE 57–77; RESP 10–20; TEMP 36.3–36.6; O2SAT 98–100
--- NOTE | ~2021-01-29 | XR_ITS ---
EXAMINATION: XR retrograde pyelo w/stent LT DATE: 01/29/2021 13:28 INDICATION: Left ureteral stone and hydronephrosis. TECHNIQUE: 4 fluoroscopic images of the abdomen and pelvis were obtained during procedure performed scar Hubbard. Radiologist was not present for the imaging or procedure. The amount of fluoroscopy t isis used during this procedure was 0.4 minutes. Total DAP was 0.208 mGycm^2 COMPARISON: CT dated 01/26/2021 FINDINGS: Retrograde contrast desiccation of the left renal collecting system and ureter demonstrates mild left hydroureteronephrosis. A wire has been advanced into the left renal pelvis. Subsequently there is pl acement of a left intrarenal stent with loops formed in the left renal pelvis and in the bladder. See procedure note for further detail. IMPRESSION: 1. Fluoroscopy utilized during left internal ureteral stent placement. Reviewed, dictated and finalized at location A.
[2021-01-29] MEDS: LACTATED RINGERS 1,000 ML 30 ML IV CONT ×2 (11:20→13:25)
--- NOTE | 2021-01-29 11:49 | WPDANESEPPF ---
Anes - Initial Pre Proc Eval Procedure: Operation Date: 01/29/21 12:30 Proposed Procedures p Cystoscopy, Left Ureteroscopy, Left Stone Extraction, Possible Left Retrograde Pyelogram, Possible Left Stent Placement, - Darion Hubbard MD s Possible Holmium Laser Procedure - Darion Hubbard MD Date/Time: 01/29/21 11:49 Surgeon: Darion Hubbard MD Pre Op Diagnosis: left ureteral stone Patient Data Age: 45 Gender: F Height: 1.6 m Weight: 72.6 kg Last Vital Signs Temp 36.6 C 01/29/21 10:50 Pulse 57 L 01/29/21 10:50 Resp 20 01/29/21 10:50 BP 121/72 01/29/21 10:50 Pulse Ox 99 01/29/21 10:50 Allergies Allergy/AdvReac Type Severity Reaction Status Date / Time No Known Allergies Allergy Verified 01/29/21 10:44 Home Medications Medication Instructions Recorded Confirmed Type Bariatric Multivitamins 1 cap PO DAILY 01/29/20 01/29/21 History calcium carbonate 168 mg PO DAILY 01/29/20 01/29/21 History escitalopram oxalate 20 mg PO HS 01/29/20 01/29/21 History estradiol 2 mg PO HS 01/29/20 01/29/21 History temazepam 15 mg capsule 15 mg PO DAILY PRN #30 cap 06/09/20 01/29/21 Rx oxybutynin chloride 10 mg 10 mg PO DAILY 07/03/20 01/29/21 History tablet,extended release 24 hr dicyclomine 20 mg PO QID PRN #20 tablet 08/22/20 01/28/21 Rx omeprazole 20 mg capsule,delayed 20 mg PO DAILY #30 cap 09/01/20 01/29/21 Rx release hydrocodone-acetaminophen 1 tablet PO Q6H PRN 3 Days #12 01/26/21 01/29/21 Rx tablet ondansetron 4 mg PO Q8H PRN #10 tablet 01/26/21 01/29/21 Rx tamsulosin [Flomax] 0.4 mg PO DAILY #10 cap 01/26/21 01/29/21 Rx nitrofurantoin monohyd/m-cryst 1 cap PO BID 01/29/21 01/29/21 History Patient hx anesthesia problems: none Family hx anesthesia problems: none Results Review: All pre-operative results and documents have been reviewed as part of the pre-operative evaluation. [facility] Past Medical History Medical History Acute bronchitis due to infection Acute left ankle pain Acute pain of left knee Acute pain of right knee Anxiety Arthralgia of temporomandibular joint, unspecified side BMI 26.0-26.9,adult Body mass index [BMI] 45.0-49.9, adult (02/02/16) Bowel obstruction Dietary counseling and surveillance (08/18/17) Dyspnea on exertion Elevated glucose Elevated sed rate Encounter for screening for diabetes mellitus Epigastric abdominal pain Essential (primary) hypertension Excessive sweating Family hx of colon cancer Fatty liver Foreign body in left ear, initial encounter Ganglion cyst Gastroenteritis Hiatal hernia Incisional hernia with obstruction but no gangrene Incisional hernia without obstruction or gangrene Infection Insomnia Irritable bowel syndrome with diarrhea Left hand pain Left wrist pain Low vitamin D level Lung nodule Mass of left foot Morbid obesity Myalgia and myositis Nodule of finger of right hand Numbness of left hand SHANI (obstructive sleep apnea) Other symptoms and signs involving emotional state Overweight with body mass index (BMI) 25.0-29.9 Paresthesia Prediabetes Renal cyst Right foot pain Right ovarian cyst Right-sided chest wall pain Routine physical examination RUQ pain Screening for colon cancer Screening for lipid disorders Screening for thyroid disorder Tension headache Thinning hair Umbilical hernia without obstruction and without gangrene Urinary symptom or sign Vitamin B 12 deficiency Weight gain Surgical History Surgical History H/O hernia repair History of gastric surgery Family History Family History Mother Family history of premature coronary heart disease Hypertension Family history of diabetes mellitus in first degree relative Patient's mother is in good health, Onset Age: 42 Family history of congestive heart failure Decea
--- NOTE | 2021-01-29 12:15 | WPDHPUPDATE1 ---
History and Physical Update Update Date/Time: 01/29/21 12:15 History and Physical has been reviewed, including an updated exam of the patient. There are NO changes in the patient's condition. Risks, benefits, and alternatives have been discussed and questions answered. Patient agrees to proceed with procedure.
[2021-01-29] MEDS: ceFAZolin 2 GM/D5W 50 ML 2 GM/50 ML BAG IVPB (12:28)
[2021-01-29] MEDS: LIDOCAINE HCL 2% GEL UROJET 10 ML PKG MUCOUS MEM (12:28)
--- NOTE | 2021-01-29 13:20 | W.PM.PROC2 ---
Procedure Note - Detailed Date of Procedure 01/29/21 Pre-op Diagnosis left ureteral stone Post-op Diagnosis same Procedure Performed Cystoscopy, left retrograde pyelogram, left ureteroscopy with stone extraction, left ureteral stent placement 4.8 Iraqi contour Surgeon Darion Hubbard MD Anesthesia general Description of Procedure Patient is taken to the operative suite and correctly identified. Once anesthesia was obtained she was placed in dorsal lithotomy position and prepped and draped usual sterile fashion. Twenty-two Iraqi scope inserted the bladder. There is no tumors noted. Left ureteral orifice was cannulated with a guidewire. We dilated with an 8/10 dilator. Rigid ureteral scope was then inserted. The stone was visualized and grasped with an escape basket. Was sent for analysis. Pyelogram was then performed to confirm placement of the stent. 4.8 Iraqi contour stent was placed with the proximal end coiled in the renal pelvis and the distal in the bladder. Bladder was drained. 2% viscous lidocaine was inserted urethra. Patient is taken recovery stable condition. She will follow up with a 2 weeks for stent removal. Drains Yes Packing No Pathology yes Complications No immediate complications Condition stable Disposition PACU
[2021-01-29] MEDS: ACETAMINOPHEN 500 MG TABLET 1000 MG PO (14:22)
[2021-01-29] MEDS: oxyCODONE HCL (*CRX) 5 MG TAB IR PO (14:55)
[2021-01-29] MEDS: ONDANSETRON INJ 4 MG/2 ML VIAL IV PUSH (15:45)
== END 2021-01-29 16:00 | disposition home or self-care (01) ==
PROVIDERS: PCP Family Medicine; Visit Provider Urology
PROC: (CPT 52352; principal; 2021-01-29 12:30)
DX: N13.2 Hydronephrosis with renal and ureteral calculous obstruction (principal); I10 Essential (primary) hypertension; K76.0 Fatty (change of) liver, not elsewhere classified; K58.0 Irritable bowel syndrome with diarrhea; E55.9 Vitamin D deficiency, unspecified; G47.33 Obstructive sleep apnea (adult) (pediatric); R73.03 Prediabetes; E53.8 Deficiency of other specified B group vitamins; Z98.84 Bariatric surgery status; F17.290 Nicotine dependence, other tobacco product, uncomplicated; Z79.891 Long term (current) use of opiate analgesic
CPT/HCPCS: 52332; 52352; 74420; 82365; 88300; A9270; C1726; C1758; C1769; C2617; J0690; J1100; J2250; J2405; J2704; J3010; J7120; Q9966

== ENCOUNTER 2022-06-12 18:55 | Emergency (ER) | payer OTHER, SELFPAY ==
--- NOTE | ~2022-06-12 | XR_ITS ---
EXAM: XR foot LT min 3V DATE: 06/12/2022 19:47 HISTORY: left foot pain and swelling, heel and ankle area . COMPARISON: 10/03/2012. FINDINGS: Normal mineralization. No fracture or dislocation. No lytic or blastic lesion. Mild scatte red degenerative change. Achilles and plantar enthesopathy. No erosion or periosteal change. Soft tis sues within normal limits. IMPRESSION: No acute osseous finding in the left foot. Reviewed, dictated and finalized at location K. [employer]
[2022-06-12 19:23] VITALS: BP 128/78; PULSE 80; RESP 14; TEMP 36.7; O2SAT 100
--- NOTE | 2022-06-12 19:58 | ED.LOWEXIN ---
HPI - Extremity Injury (Lower) General Chief Complaint: Extremity Injury, Lower Stated Complaint: L Foot pain Time Seen by Provider: 06/12/22 19:36 History of Present Illness HPI Narrative: Patient is a 46-year-old female here for evaluation of pain to her left foot over the past week. Patient states the pain is concentrated near her left posterior heel and also near her Achilles insertion. She has been walking on the foot but states it is painful. Attempted leftover Vicodin and Tylenol without relief of her symptoms. She cannot take NSAIDs due to history of gastric bypass. she did suffer an Achilles tendon rupture in February of the past year that was treated nonsurgically with a boot and several weeks of PT. States that she improved from this clinically and the pain today does not feel similar to that presentation at that time. Reports some paresthesias in her foot but is able to move it without issue. No obvious injury to the foot. Related Data Home Medications Medication Instructions Recorded Confirmed calcium carbonate 168 mg calcium 168 mg PO DAILY 01/29/20 07/22/21 (420 mg) chewable tablet escitalopram oxalate 20 mg tablet 20 mg PO HS 01/29/20 07/22/21 estradiol 2 mg tablet 2 mg PO HS 01/29/20 07/22/21 [id number]-toin 45 mg-folic 1 cap PO DAILY 01/29/20 07/22/21 acid 800 mcg-vit K 120 mcg capsule (Bariatric Multivitamins) oxybutynin chloride 10 mg 10 mg PO DAILY 07/03/20 07/22/21 tablet,extended release 24 hr Allergies Allergy/AdvReac Type Severity Reaction Status Date / Time No Known Allergies Allergy Verified 06/12/22 18:56 Review of Systems Review of Systems: Gen: Denies fevers or chills Eyes: Denies eye pain or visual change ENT: Denies congestion Respiratory: Denies shortness of breath or cough CV: Denies chest pain or palpitations GI: Denies abdominal pain nausea, emesis or diarrhea denies burning, urgency, frequency or hematuria Musculoskeletal: Reports left foot pain Neuro: Denies numbness, tingling, weakness or focal weakness Skin: Denies rash Except as documented, all other systems reviewed and negative PMFSH Past Medical History Medical History Acute bronchitis due to infection Acute left ankle pain Acute pain of left knee Acute pain of right knee Anxiety Arthralgia of temporomandibular joint, unspecified side BMI 26.0-26.9,adult BMI 31.0-31.9,adult Body mass index [BMI] 45.0-49.9, adult (02/02/16) Bowel obstruction Dietary counseling and surveillance (08/18/17) Dyspnea on exertion Elevated glucose Elevated sed rate Encounter for screening for diabetes mellitus Epigastric abdominal pain Essential (primary) hypertension Excessive sweating Family hx of colon cancer Fatty liver Foreign body in left ear, initial encounter Ganglion cyst Gastroenteritis Hiatal hernia Incisional hernia with obstruction but no gangrene Incisional hernia without obstruction or gangrene Infection Insomnia Irritable bowel syndrome with diarrhea Left hand pain Left wrist pain Low vitamin D level Lung nodule Mass of left foot Morbid obesity Myalgia and myositis Nodule of finger of right hand Numbness of left hand SHANI (obstructive sleep apnea) Other symptoms and signs involving emotional state Overweight with body mass index (BMI) 25.0-29.9 Paresthesia Prediabetes Renal cyst Right foot pain Right ovarian cyst Right-sided chest wall pain Routine physical examination RUQ pain Screening for colon cancer Screening for lipid disorders Screening for thyroid disorder Tension headache Thinning hair Umbilical hernia without obstruction and without gangrene Urinary symptom or sign Vitamin B 12 deficiency Weight gain Surgical History Surgical History H/O hernia repair History of gastric surgery Family History Family History (Reviewed 07/23/21 @ 15:44 by Channing Silverio
[2022-06-12] MEDS: HYDROcodone/acetaminophen (*CRX) 7.5-325 MG TABLET 1 TAB PO (20:02)
--- NOTE | 2022-06-12 20:08 | PC.NURSE ---
Triage note reviewed and confirmed. Pt c/o LLE pain/ankle pain. No recent trauma/injury. a&ox4
== END 2022-06-12 21:49 | disposition home or self-care (01) ==
PROVIDERS: Emergency Provider Physician Assistant; PCP Family Medicine
DX: S86.092A Other specified injury of left Achilles tendon, initial encounter (principal); I10 Essential (primary) hypertension; G47.33 Obstructive sleep apnea (adult) (pediatric); E53.8 Deficiency of other specified B group vitamins; E66.01 Morbid (severe) obesity due to excess calories; Z68.31 Body mass index [BMI] 31.0-31.9, adult; F41.9 Anxiety disorder, unspecified; F17.290 Nicotine dependence, other tobacco product, uncomplicated; Z98.84 Bariatric surgery status; X58.XXXA Exposure to other specified factors, initial encounter
CPT/HCPCS: 73630; 99283; A9270

== ENCOUNTER 2022-06-19 08:50 | Outpatient (CLI) | payer OTHER, SELFPAY ==
--- NOTE | ~2022-06-19 | MR_ITS ---
EXAMINATION: MR ankle LT wo con DATE: 06/19/2022 09:39 INDICATION: Achilles tendon rupture, left ankle. Left ankle pain. TECHNIQUE: Magnetic resonance imaging (MRI) of the left ankle was performed without intravenous contr ast. Sequences included sagittal PD-weighted FS FSE, sagittal PD-weighted FSE, coronal PD-weighted FS FSE, coronal PD-weighted FSE, axial PD-weighted FS FSE, and axial PD-weighted FSE. COMPARISON: Left foot radiographs 06/12/2022 FINDINGS: Medial ankle ligaments: The superficial and deep components of the deltoid ligament are normal. Lateral ankle ligaments: There are changes of prior lateral ankle sprain characterized by thickening and increased signal inte nsity of anterior talofibular ligament and increased signal in anterior tibiofibular ligament. Calcan eofibular ligament, posterior talofibular ligament, and posterior tibiofibular ligament are normal. Tendons: The anterior and medial ankle tendons are normal. There is enlargement and increased signal in the pe roneus longus tendon, consistent with tendinopathy and partial tear. There is enlargement and increas ed signal in the Achilles tendon near its distal attachment, consistent with tendinopathy and partial tear. A skin marker overlies this area. There is mild pre-Achilles bursitis. Plantar fascia: There is thickening and increased signal involving the central band of plantar fascia, consistent wit h fasciitis. There is an enthesophyte at the calcaneal attachment. Bones/other: The talar dome is normal. Fluid: There is a small ankle joint effusion. There is edema anterior fat pad. There is subcutaneous edema i n the plantar foot. IMPRESSION: 1. Tendinopathy and small partial tear of the Achilles tendon at the insertion. 2. Tendinopathy and partial tear of peroneus longus tendon. 3. Plantar fasciitis. Reviewed, dictated and finalized at location A. [employer]
== END 2022-06-19 08:51 ==
LOC: MICIMG 08:51
PROVIDERS: PCP Family Medicine; Visit Provider Podiatrist Foot & Ankle Surgery
DX: M76.62 Achilles tendinitis, left leg (principal); M72.2 Plantar fascial fibromatosis
CPT/HCPCS: 73721

== ENCOUNTER 2022-08-13 00:51 | Day surgery (SDC) | payer OTHER, SELFPAY ==
[2022-08-09 09:16] VITALS: BMI 31.8
--- NOTE | 2022-08-09 09:17 | SUR.PREOP ---
Report to the Outpatient Waiting Room, entrance under the green pavilion located off [facility], at time _0600 on date _08/13/22 . Planned Procedure Time: _0730 . Time changes happen often and if your time is changed the preop area will call you the afternoon before. - You and your visitor will be asked to self-screen and do not enter if you have any COVID symptoms. - A mask is optional within the hospital at this time. Patients may have clear liquids (water, carbonated beverages, clear teas, apple juice) until 3 hours prior to surgery with a maximum of 20 ounces. - No food from midnight until time of surgery - Infants may have breast milk until 4 hours before surgery, formula 6 hours prior to surgery. - Children will be allowed to drink immediately following surgery. If applicable, please bring a bottle or sippy cup to assist with drinking. Juice, water, soda, and popsicles are readily available. For infants on formula, please bring formula the day of surgery. Pacifiers are allowed. Take the following medications with a SIP of water the morning of surgery: __n/a DO NOT STOP ANY OF YOUR OTHER PRESCRIPTION MEDICATIONS PRIOR TO SURGERY ?EXCEPT THE FOLLOWING Medications to discontinue per physician ____vitamin supplements Date to take last dose_08/10/22 Please no make-up, nail bolivian, hairspray, perfume, deodorant, or body powder the day of surgery. No jewelry (including any body piercings) or valuables the day of surgery, leave them at home. Please take a shower or bath the night before, or the morning of, surgery with an antibacterial soap. Wear comfortable, loose fitting clothing. Children are encouraged to wear pajamas. - Jewelry must be removed prior to entering the operating room. Rings and piercings that are not removed may be cut off. - The hospital will not accept responsibility for valuables. - Please leave all valuables, including medications, at home the day of surgery. If you are going home after surgery, a licensed commercial trailer truck driver must drive you home. - NO public transportation without another adult if you receive anesthesia. - We recommend that an adult stay with you for 24 hours following discharge. - We also recommend that you do not drive, make important decision, drink alcoholic beverages, or take any drugs that were not prescribed by your health care provider for at least 24 hours after your discharge time. For Pediatric surgeries, we recommend two adults accompany the child home. Follow any additional instructions given to you from your surgeon. If you or anyone in your household have experienced Covid symptoms in the past week, please notify your surgeon or the nurse liaison at the phone number below for possible testing. Telephone instructions given to rm higgins and asked if any additional questions and then verbalized understanding. Patient advised to call surgeon office or pre surgery nurse liaison [phone] if any additional questions.
[2022-08-13] VITALS (7 sets, daily range): BP systolic 104–137; BP diastolic 58–80; PULSE 67–86; RESP 12–16; TEMP 36.1–36.9; O2SAT 97–100
--- NOTE | ~2022-08-13 | XR_ITS ---
EXAMINATION: XR surgery orthopedic DATE: 08/13/2022 08:26 INDICATION: Left Achilles tendon repair. Retrocalcaneal exostectomy. TECHNIQUE: One fluoroscopic image of the left calcaneus was obtained during procedure performed by Dr Isac Becker. Radiologist was not present for the imaging or procedure. The amount of fluoroscopy time used during this procedure was 0.1 minutes. COMPARISON: 06/12/2022 FINDINGS: Lucent surgical soft tissue defect posterior to the calcaneus with osteotomy at the cephalad margin o f the posterior tuberosity. Increased density cephalad to the posterior tuberosity could represent en thesopathic ossification in the distal Achilles tendon as seen on the prior radiographs. Small planta r calcaneal spur. IMPRESSION: 1. Fluoroscopy utilized during orthopedic procedure the left calcaneus. See procedure note for furthe r detail. Reviewed, dictated and finalized at location A. IMPRESSION: 1. Fluoroscopy utilized during orthopedic procedure the left calcaneus. See pro cedure note for further detail.
[2022-08-13] MEDS: LACTATED RINGERS 1,000 ML 30 ML IV CONT ×2 (06:30→08:48)
--- NOTE | 2022-08-13 07:06 | WPDANESEPPF ---
Anes - Initial Pre Proc Eval Procedure: Operation Date: 08/13/22 07:30 Proposed Procedures p Achilles Tendon Repair Left Foot with Retrocalcaneal Exostectomy - Andrew Becker JR, MD Date/Time: 08/13/22 07:06 Surgeon: Andrew Becker JR, MD Pre Op Diagnosis: Achilles Tendon Tear,Tendinopathy Lt Ft Patient Data Age: 46 Gender: F Height: 1.6 m Weight: 81.44 kg Allergies Allergy/AdvReac Type Severity Reaction Status Date / Time No Known Allergies Allergy Verified 08/09/22 08:47 Home Medications Medication Instructions Recorded Confirmed Type escitalopram oxalate 20 mg tablet 20 mg PO HS 01/29/20 08/09/22 History estradiol 2 mg tablet 2 mg PO HS 01/29/20 08/09/22 History temazepam 15 mg capsule 15 mg PO DAILY PRN sleep #30 caps 06/09/20 08/09/22 Rx oxybutynin chloride 10 mg 10 mg PO DAILY 07/03/20 08/09/22 History tablet,extended release 24 hr hydrocodone 5 mg-acetaminophen 325 1 tablet PO Q6H PRN pain 3 days 01/26/21 08/09/22 Rx mg tablet #12 tabs biotin 5 mg capsule 5 mg PO DAILY 08/09/22 08/09/22 History cholecalciferol (vitamin D3) 50 50 mcg PO DAILY 08/09/22 08/09/22 History mcg (2,000 unit) capsule (Vitamin D3) lidocaine 5 % topical patch 1 patch topical PRN 08/09/22 08/09/22 History (Lidoderm) multivitamin 1 cap PO DAILY 08/09/22 08/09/22 History Patient hx anesthesia problems: none Family hx anesthesia problems: none Results Review: All pre-operative results and documents have been reviewed as part of the pre-operative evaluation. [facility] Past Medical History Medical History Acute bronchitis due to infection Acute left ankle pain Acute pain of left knee Acute pain of right knee Anxiety Arthralgia of temporomandibular joint, unspecified side BMI 26.0-26.9,adult BMI 31.0-31.9,adult Body mass index [BMI] 45.0-49.9, adult (02/02/16) Bowel obstruction Dietary counseling and surveillance (08/18/17) Dyspnea on exertion Elevated glucose Elevated sed rate Encounter for screening for diabetes mellitus Epigastric abdominal pain Essential (primary) hypertension Excessive sweating Family hx of colon cancer Fatty liver Foreign body in left ear, initial encounter Ganglion cyst Gastroenteritis Hiatal hernia Incisional hernia with obstruction but no gangrene Incisional hernia without obstruction or gangrene Infection Insomnia Irritable bowel syndrome with diarrhea Left hand pain Left wrist pain Low vitamin D level Lung nodule Mass of left foot Morbid obesity Myalgia and myositis Nodule of finger of right hand Numbness of left hand SHANI (obstructive sleep apnea) Other symptoms and signs involving emotional state Overweight with body mass index (BMI) 25.0-29.9 Paresthesia Prediabetes Renal cyst Right foot pain Right ovarian cyst Right-sided chest wall pain Routine physical examination RUQ pain Screening for colon cancer Screening for lipid disorders Screening for thyroid disorder Tension headache Thinning hair Umbilical hernia without obstruction and without gangrene Urinary symptom or sign Vitamin B 12 deficiency Weight gain Surgical History Surgical History H/O hernia repair History of gastric surgery Family History Family History Mother Family history of premature coronary heart disease Hypertension Family history of diabetes mellitus in first degree relative Patient's mother is in good health, Onset Age: 42 Family history of congestive heart failure Grandparent Family history of lung cancer Father Patient's father is in good health, Onset Age: 50 Sibling Hypertension Obesity Other Diabetes mellitus Family history of cardiovascular disease Family history of malignant neoplasm Social History Social History (Reviewed 08/13/22 @ 07:06 by Bradford Martin
--- NOTE | 2022-08-13 07:10 | WPDHPUPDATE1 ---
History and Physical Update Update Date/Time: 08/13/22 07:10 History and Physical has been reviewed, including an updated exam of the patient. There are NO changes in the patient's condition. Risks, benefits, and alternatives have been discussed and questions answered. Patient agrees to proceed with procedure.
--- NOTE | 2022-08-13 07:19 | WPDANESPNB ---
Anes - Peripheral Nerve Block Date/Time: 08/13/22 07:19 I have discussed with the patient/family/POA the placement of a peripheral nerve block for post-operative pain management, including associated risks, benefits, complications, and side effects. Alternative methods of post-operative analgesia were detailed. Questions were solicited and answers provided to the satisfaction of the patient/family/POA. Time-Out: A pre-procedural Time-Out was completed immediately before starting the procedure and confirmed: Patient Identification, Site, Procedure, Patient Position and the Availability of Requisite Equipment. Clinical Indications: Acute post-operative pain management requested by the operative surgeon. Nerve Block Insertion Note Anes-nerve block: posterior fossa sciatic left Patient position: supine Skin prep: chlorhexidine Needle: 22 gauge, stimulating, insulated echogenic needle. Needle length: 80 mm Technique: nerve stimulation lost at (mA) (0.35) Injectate: bupivacaine 0.5% with epi 5 mcg/ml (30cc no epi) and dexamethasone (mg) (8) Observations: tolerated well Complications: none Procedure start time:: 709 Procedure end time:: 716
[2022-08-13] MEDS: ceFAZolin 2 GM/D5W 50 ML 2 GM/50 ML BAG IVPB (07:25)
--- NOTE | 2022-08-13 08:54 | W.PM.PROC2 ---
Procedure Note - Detailed Date of Procedure 08/13/22 Pre-op Diagnosis Partial Achilles tendon tear left foot with insertional calcific tendinopathy Post-op Diagnosis Same Procedure Performed Achilles tendon repair left foot with retrocalcaneal exostectomy and detachment and reattachment of the Achilles tendon Surgeon Andrew Becker JR, DPM Anesthesia General and Regional (Popliteal fossa block left lower extremity) Indications Split tear of the distal lateral Achilles tendon, large retrocalcaneal exostosis Findings same Description of Procedure Under mild sedation, the patient was brought to the operating room, placed on the operating table in the prone position. A pneumatic thigh tourniquet was placed about the patient's right thigh . Following general anesthesia and a prior popliteal fossa block by the Anesthesia department the left foot and distal leg were then scrubbed, prepped, and draped in the usual aseptic manner. An Esmarch bandage was then used to examine the patient's left foot and pneumatic thigh tourniquet was then inflated. Surgery began in the following manner. Attention was directed to the posterior aspect of right leg where a curvilinear J shaped incision was made lateral to the retrocalcaneal exostosis which was palpable. The incision was made starting 6cm above the insertion of the Achilles and extending 3cm inferior and medial to the calcaneus. The incision was continued deep down through the subcutaneous tissues using sharp and blunt dissection. All bleeders were cauterized as necessary. At this point dissection was continued exposing the the insertional component of the Achilles Tendon. There was noted hypertrophy to the distal tendon, I carefully detached the distal Achilles tendon from the calcaneus, exposing a large intrasubstance calcified region of bone which was carefully excised. The small split tear of the lateral Achilles tendon was excised. There was a large posterior and superior exostosis noted which was resected with an osteotome and mallet and feathered smooth with a sagittal saw blade. All rough edges were smoothed with a bone rasp. The area was flushed with copious amounts of sterile saline. Fluoroscopy was used to make sure that enough of the retrocalcaneal region was resected approximately 3m from superior to inferior and medial to lateral and 2cm from posterior to anterior. Next, utilizing standard principle and techniques the Arthrex SpeedBridge system was used to reattach the debulked Achilles tendon to the posterior calcaneus. Comparable tension to the contralateral foot was maintained. Adequate stable reattachment was noted. I flushed the wound site with copious amounts of sterile saline. Next, the paratenon and overlying subcutaneous tissue was reapproximated with 4-0 Vicryl correspondingly. Next, the skin was reapproximated and coapted until 5-0 Monocryl in running subcuticular suture fashion technique. Upon completion of the procedure, the incision was dressed with Adaptic, 4 x 4's, Kerlix, and Dale Wrap. The pneumatic thigh tourniquet was then deflated and a prompt hyperemic response noted to all digits of the left foot. A posterior splint was then applied. The patient did very well with the procedure and the anesthesia. The patient was transferred to the recovery room with vital signs stable and vascular status intact to all toes of the left foot. Following a period of postoperative monitoring, the patient will be discharged home on the following written and oral postoperative instructions: 1. Keep the dressing clean, dry, and intact. Use a cast protector bag with showers. 2. The patient to be strictly nonweightbearing with a knee scooter. 3. The patient should ice and elevate the affected foot when at rest. 4. The patient to contact Dr. Becker for all postop care and if any problems arise. 5. Prescriptions were written for Percocet 5/325 dispensed 40 to be taken 1 p.o. q.4 to 6 ho
== END 2022-08-13 10:36 | disposition home or self-care (01) ==
PROVIDERS: PCP Family Medicine; Visit Provider Podiatrist Foot & Ankle Surgery
PROC: (CPT 27650; principal; 2022-08-13 07:30)
DX: S86.012A Strain of left Achilles tendon, initial encounter (principal); G89.18 Other acute postprocedural pain; G47.33 Obstructive sleep apnea (adult) (pediatric); E55.9 Vitamin D deficiency, unspecified; Z87.891 Personal history of nicotine dependence; E66.9 Obesity, unspecified; Z68.33 Body mass index [BMI] 33.0-33.9, adult; X58.XXXA Exposure to other specified factors, initial encounter; Z98.84 Bariatric surgery status
CPT/HCPCS: 28118; 64445; 99199; C1713; J0330; J0690; J1100; J2250; J2405; J2704; J3010; J7120

== ENCOUNTER 2023-07-29 09:01 | Outpatient (CLI) | payer OTHER, SELFPAY ==
--- NOTE | ~2023-07-29 | XR_ITS ---
EXAMINATION: XR chest 2V Exam Date/Time: 07/29/2023 9:08 CDT HISTORY: R09.89 - Other specified symptoms and signs involving the... Comparison: 11/07/2013, report only. RESULT: Lines, tubes, and devices: None. Lungs and pleura: Clear. Right lower lung calcified granuloma. Cardiomediastinal silhouette: Normal. Other: No acute osseous or upper abdominal finding. IMPRESSION: No acute cardiopulmonary process. Reviewed, dictated and finalized at location K.
== END 2023-07-29 09:02 ==
PROVIDERS: PCP Nurse Practitioner Adult Health; Visit Provider Nurse Practitioner Adult Health
DX: R09.89 Other specified symptoms and signs involving the circulatory and respiratory systems (principal)
CPT/HCPCS: 71046

== ENCOUNTER 2024-08-02 00:29 | Day surgery (SDC) | payer OTHER, SELFPAY ==
[2024-07-26 10:55] VITALS: BMI 39.0
--- OUTSIDE RECORDS SUMMARY | 2024-08-02 00:31 | XMS_ITS | Clinical Summary ---
Author Organization [facility] Address [address] [facility] [place] [address] Phone Care Team Providers Care Unix Systems Administrator Name Role Phone Mark Anthony Tang MD Primary Care Provider Allergies No known active allergies Medications escitalopram oxalate (LEXAPRO) 20 mg tablet Take 20 mg by mouth daily. Active multivitamin (DAILY-MICHELLE) tablet Take 1 Tablet by mouth daily. 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 Arthritis 01/29/2016 Family History Medical History Relation Name Comments Cancer Father Heart Disease Father Diabetes Mother Heart Disease Mother Relation Name Status Comments Brother 1 Alive Brother 2 Alive Father Mother Sister Alive Social History Tobacco Use Types Packs/Day Years Used Date Smoking Tobacco: Every Day Cigarettes Last attempted t o quit: 01/28/2011 E-Cigarette/Mist Inhalation Device Alcohol Use Standard Drinks/Week Comments Yes 0 (1 standard drink = 0.6 oz pur e alcohol) Comments No Sex and Gender Information Value Date Recorded Sex Assigned at Not on file Legal Sex Female 11:16 AM CDT Gender Identity Not on file Sexual Orientation Not on file Last Filed Vital Signs Vital Sign Reading Time Taken Comments Blood Pressure 140/79 01/29/2016 11:10 AM CDT Pulse 67 01/29/2016 11:10 AM CDT Temperature 36.7 C (98.1 F) 01/29/2016 11:10 AM CDT Respiratory Rate 18 01/29/2016 11:1 0 AM CDT Oxygen Saturation 99% 01/29/2016 11: 10 AM CDT Inhaled Oxygen Concentration - - Weight 118.3 kg (260 lb 14.4 oz) 2015 11:10 AM CDT Height 160.7 cm (5' 3.25 ) 01/29/2016 1 1:10 AM CDT Body Mass Index 45.85 01/29/2016 11:10 AM CDT Plan of Treatment Health Maintenance Due Date Last Done Comments DTAP/TDAP/TD VACCINES (1 - Tdap) 1996 HEPATITIS B VACCINES (1 of 3 - 19+ 3-dose series) 1996 HPV/Cotest (21-29) 1998 CERVICAL CANCER SCREENING 10/17/2007 HPV/Cotest (30-65) 10/17/2007 PAP SMEAR 10/17/2007 BREAST CANCER SCREENING 2017 COLORECTAL SCREENING 2022 Colorectal Cancer Screening 2022 FIT-DNA Q 3 years 2022 FIT/FOBT Q 1 year 2022 Flex Sig/CT Colonography Q 5 years 2022 INFLUENZA VACCINE (#1) 2023 HPV VACCINES Aged Out No longer eligi ble based on patient's age to complete this topic Insurance BLUE ACCESS CHOICE Care Teams Unix Systems Administrator Relationship Specialty Start Date End Date Mark Anthony Tang MD [address] [place] [address] PCP - General Family Practice 01/29/16
--- OUTSIDE RECORDS SUMMARY | 2024-08-02 00:31 | XMS_ITS | Clinical Summary ---
Author Organization [facility] Address [facility] [place] [address] Care Team Providers Care Raw Products Director Name Role Phone Mark Anthony Tang MD Primary Care Provider [phone] Allergies No known active allergies Medications escitalopram (LEXAPRO) 20 MG tablet Take 20 mg by mouth daily. 2 Active estradiol (ESTRACE) 2 MG tablet Take 2 mg by mouth daily. 2 Active oxybutynin XL (DITROPAN-XL) 10 MG 24 hr tablet Take 10 mg by mouth daily. 2 Active Multiple Vitamin (MULTIVITAMIN ADULT OR) Active temazepam (RESTORIL) 7.5 MG capsule Take 22.5 mg by mouth nightly as needed for Sleep. Active HYDROcodone-landon taminophen (NORCO) 5-325 MG tabletIndicatio ns:Acute Pain < 7 Day Supply Take 1 tablet by mouth every 6 (six) hours as needed. Indications: Acute Pain < 7 Day Supply 10 tablet 4 Active naloxone (NARCAN) 4 MG/0.1ML nasal spray 1 spray by Nasal route as needed for Opioid reversal. may repeat every 2 to 3 minutes in alternating nostrils until medical assistance becomes available 1 each 4 10/13/19 25 Active Family History Medical History Relation Comments Cancer Father colon Heart Disease Father Hypertension Father Heart Disease Mother Hypertension Mother Relation Status Comments Father Mother Social History Tobacco Use Types Packs/Day Years Used Date Smoking Tobacco: Former Cigarettes Smokeless Tobacco: Never Alcohol Use Standard Drinks/Week Comments Yes 0 (1 standard drink = 0.6 oz pur e alcohol) socially Comments No Sex and Gender Information Value Date Recorded Sex Assigned at Not on file Legal Sex Female 5:22 PM CDT Gender Identity Not on file Sexual Orientation Not on file Last Filed Vital Signs Vital Sign Reading Time Taken Comments Blood Pressure 107/69 10/13/2023 1:41 AM CDT Pulse 64 10/13/2023 1:41 AM CDT Temperature 36.7 C (98 F) 10/13/2023 1:41 AM CDT Respiratory Rate 16 10/13/2023 1:41 AM CDT Oxygen Saturation 99% 10/12/2023 11:05 PM CDT Inhaled Oxygen Concentration - - Weight 95.4 kg (210 lb 5.1 oz) 10/12/2023 11:08 PM CDT Height 160 cm (5' 3 ) 10/12/2023 11:05 PM CDT Body Mass Index 37.26 10/12/2023 11:05 PM CDT Plan of Treatment Health Maintenance Due Date Last Done Comments Colorectal Cancer Screening Colonoscopy (10 Years) 1977 Annual Physical 1980 Hepatitis C 10/17/1995 DTaP, Tdap and Td Vaccines (1 - Tdap) 1996 Hepatitis B Vaccines (1 of 3 - 19+ 3-dose series) 1996 Mammogram Screening 2017 COVID-19 Vaccine ( season) 2023 01/20/2021, 09/23/2020, 04/30/2020, Additional history exists Meningococcal B Vaccine Aged Out No l onger eligible based on patient's age to complete this topic Meningococcal Vaccine Aged Out No chikis anna eligible based on patient's age to complete this topic Pneumococcal Vaccine: Pediatrics (0 to 5 Years) and At-Risk Patients (6 to 49 Years) Aged Out No longer eligible based on patient's age to complete this topic RSV Immunizations Under 20 Months Aged Out No longer eligible based on patient's age to complete this topic Insurance [employer] [id number] [id number] Care Teams Raw Products Director Relationship Specialty Start Date End Date Mark Anthony Tang MD [address] [place], [place] [id number] PCP - General 10/16/13
--- OUTSIDE RECORDS SUMMARY | 2024-08-02 00:31 | XMS_ITS | Clinical Summary ---
Author Organization [facility] Address [address], [address] [address] Phone Care Team Providers Care Consumer Loan Officer Name Role Phone Mark Anthony Tang MD Primary Care Provider [phone] Medications dicyclomine (BENTYL) 20 MG Tablet TAKE 1 TABLET BY MOUTH EVERY 6 HOURS 60 Tab 3 10/04/2018 Active Immunizations Immunization Administration Dates Next Due Covid-19, Mrna, Lnp-s, Pf, 30 Mcg/0.3 Ml Dose (P fizer) 09/23/2020 Social History Tobacco Use Types Packs/Day Years Used Date Smoking Tobacco: Never Assessed Comments Unknown Sex and Gender Information Value Date Recorded Sex Assigned at Not on file Legal Sex Female 10:48 AM ACTUARIAL MATHEMATICIAN Gender Identity Not on file Sexual Orientation Not on file Plan of Treatment Health Maintenance Due Date Last Done Comments Hepatitis C Virus (HCV) Screening 1977 TdaP Immunization 1977 Hepatitis B Immunization (1 of 3 - 19+ 3-dose series) 1996 Colonoscopy 07/21/2023 07/20/2018 Colorectal Cancer Screening 07/21/2023 SARS-COV-2 Immunization ( season) 2023 01/20/2021, 09/23/2020, 04/30/2020, Additional history exists Influenza Immunization (Season Ended) 2024 Respiratory Syncytial Virus (RSV) Immunization (Adult) (1 - 1-dose 75+ series) 2052 07/20/2018 Meningococcal Immunization (ACWY) Aged Out No longer eligible based on patient's age to complete this topic Pneumococcal Immunization Combined Aged Out No longer eligible based on patient's age to complete this topic Rotavirus Immunization Aged Out No lo nger eligible based on patient's age to complete this topic Procedures Procedure Name Priority Date/Time Associated Diagnosis Comments COLONOSCOPY Routine 07/20/2018 from Last 3 Months or Most Recently Relevant to Health Maintenance Results * COLONOSCOPY (07/20/2018) Giuliano Conley DO PROCEDURE/MINOR SURGICAL ORDERA BLES Final Result from Last 3 Months or Most Recently Relevant to Health Maintenance Insurance [facility] Care Teams Consumer Loan Officer Relationship Specialty Start Date End Date Mark Anthony Tang MD [address] [place] [address] PCP - General Family Medicine 05/03/18
--- OUTSIDE RECORDS SUMMARY | 2024-08-02 00:31 | XMS_ITS | Referral Summary ---
Author Organization [facility] Virtual Care Address [address] [place] [phone] Phone Care Team Providers Care Towerman Name Role Phone Mark Anthony Tang MD Primary Care Provider Encounters Date Type Department Care Team Description 07/13/2024 8:31 PM CDT - 07/13/2024 11:03 PM CDT Emergency [address] [address] Fall, initial encounter (Primary Dx); Head injury, initial encounter; Acute pain of left knee; Acute left ankle pain; Contusion of right lower leg, initial encounter Discharge Disposition: Discharge to home or self care from Last 3 Months Allergies No known active allergies Medications escitalopram (LEXAPRO) 10 mg tablet take 1 tablet by oral route every day 0 0 6 Active multivitamin tabletIndications: Vitamin Deficiency Prevention Take 1 tablet by mouth every morning Active temazepam (RESTORIL) 15 mg capsuleIndications :Insomnia Take 1 capsule (15 mg total) by mouth nightly as needed for sleep 1 Active gabapentin (NEURONTIN) 300 mg capsuleIndications :Neuropathic Pain Take 1 capsule (300 mg total) by mouth 2 (two) times a day Active HYDROcodone-acetam inophen (NORCO) 5-325 mg per tabletIndications: Pain Take 1 tablet by mouth every 6 (six) hours as needed for pain 4 Active ondansetron ODT (ZOFRAN-ODT) 4 mg disintegrating tablet Take 1 tablet (4 mg total) by mouth every 8 (eight) hours as needed for nausea or vomiting 3 Active traMADoL (ULTRAM) 50 mg tabletIndications: Pain Take 1 tablet (50 mg total) by mouth every 8 (eight) hours as needed for pain 4 Active acetaminophen (TYLENOL) 500 mg tabletIndications: Pain Take 2 tablets (1,000 mg total) by mouth every 6 (six) hours as needed for pain Active tamsulosin (FLOMAX) 0.4 mg extended release capsule Take 1 capsule (0.4 mg total) by mouth daily 30 capsule 4 Active HYDROcodone-acetam inophen (NORCO) 5-325 mg per tabletIndications: Pain Take 1 tablet by mouth every 4 (four) hours as needed for pain 10 tablet 4 Active oxyBUTYnin (DITROPAN) 5 mg tablet Take 1 tablet (5 mg total) by mouth 3 (three) times a day for 14 days 42 tablet 4 Active ondansetron ODT (ZOFRAN-ODT) 4 mg disintegrating tablet Take 1 tablet (4 mg total) by mouth every 8 (eight) hours as needed for nausea or vomiting 10 tablet 4 Active phenazopyridine (PYRIDIUM) 100 mg tablet Take 1 tablet (100 mg total) by mouth 3 (three) times a day as needed for urinary pain (pain with urination) 30 tablet 4 Active HYDROcodone-acetam inophen (NORCO) 5-325 mg per tabletIndications: Pain Take 1 tablet by mouth every 4 (four) hours as needed for pain 15 tablet 4 Active ketorolac (TORADOL) 10 mg tablet Take 1 tablet (10 mg total) by mouth every 6 (six) hours as needed for pain 20 tablet 5 Active methocarbamoL (ROBAXIN) 500 mg tablet Take 1 tablet (500 mg total) by mouth 2 (two) times a day 20 tablet 5 Active ketorolac (TORADOL) 10 mg tabletIndications: Severe Pain Take 1 tablet (10 mg total) by mouth every 6 (six) hours as needed for pain 4 025 Discontin ued(Thera py completed ) ibuprofen (ADVIL,MOTRIN) 400 mg tabletIndications: Pain Take 1 tablet (400 mg total) by mouth every 8 (eight) hours as needed for pain 025 Discontin ued(Thera py completed ) Active Problems Problem Noted Date Diagnosed Date Acute pyelonephritis 11/24/2023 Kidney stone 11/01/2023 Injury of right wrist 08/11/2020 Family history of coronary artery disease 2015 Overview (07/24/2016): Family history of premature CAD Dyspnea on exertion 03/05/2016 Overview (07/24/2016): BEAR (dyspnea on exertion) Tobacco use 03/05/2016 Overview (07/24/2016): Tobacco abuse Body mass index 40+ - severely obese 03/05/2016 Overview (07/24/2016): Morbid obesity with BMI of 45.0-49.9, adult Social History Tobacco Use Types Packs/Day Years Used Date Smoking Tobacco: Former Cigarettes Q uit: 2009 Smokeless Tobacco: Never Tobacco Cessation:Counseling Given: Not Answered Alcohol Use Standard Drinks/Week Comments No 0 (1 standard drink = 0.6 oz pur e alcohol) AUDIT-C Answer Date Recorded Q1: How often do you have a drink containing alc ohol? Monthly or less 02/02/2024 Q2: How many drinks containi ng alcohol do you have on a typical day when you are drinking? 1 or 2 02/02/2024 Q3: How often do you have si x or more drinks on one occasion? Never 02/02/2024 Personal Safety Answer Date Recorded Have you ever been in or are you currently in a harmful physical or emotional relationship or is someone making you feel afraid or unsafe? 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 Gender Identity Not on file Sexual Orientation Not on file Last Filed Vital Signs Vital Sign Reading Time Taken Comments Blood Pressure 148/91 07/13/2024 7:33 PM CDT Pulse 92 07/13/2024 7:33 PM CDT Temperature 36.9 C (98.5 F) 07/13/2024 7:33 PM CDT Respiratory Rate 18 07/13/2024 7:33 PM CDT Oxygen Saturation 97% 07/13/2024 7:33 PM CDT Inhaled Oxygen Concentration - - Weight 96.2 kg (212 lb) 02/02/2024 12:50 PM CDT Height 160 cm (5' 2.99 ) 07/13/2024 7:33 PM CDT Body Mass Index 37.55 02/02/2024 12:50 PM CDT Plan of Treatment Not on file Medical Devices Implanted Type Area Oysterman Device Identifier Shelf Expiration Date Model / Serial / Lot Screw Left: Knee Explanted Type Area Oysterman Device Identifier Shelf Expiration Date Model / Serial / Lot Data [employer] Universa 6fr 24cm Radiopaque Graduate Firm Monofilament Tether [id number] - [id number] Implanted:Qty: 1 on 11/22/2023 at [facility] Explanted:Qty: 1 on 12/05/2023 by Liudmila Santiago NP Left: Ureter [employer] 07/18/2026 [id number] / / [id number] Procedures Procedure Name Priority Date/Time Associated Diagnosis Comments XR TIBIA FIBULA RIGHT2 VIEWS ED 07/13/2024 9:48 PM CDT XR KNEE LEFT 3 VIEWS ED 07/13/2024 8:50 PM CDT XR ANKLE LEFT 3 OR MORE VIEWS ED 07/13/2024 8:50 PM CDT from Last 3 Months Results * XR Tibia Fibula Right 2 Views (07/13/2024 9:48 PM CDT) Anatomical Region Laterality Modality Lower Extremities, Lower Leg Right Com puted Radiography 07/13/2024 10:3 9 PM CDT Narrative 07/13/2024 10:40 PM CDT EXAM DESCRIPTION: XR TIBIA FIBULA RIGHT2 VIEWS REASON FOR STUDY: pain Pt fell tonight at work, landed on Right side sanabria, painful with movement TECHNIQUE: AP and lateral radiographic views of the right tibia and fibula . COMPARISON: None. FINDINGS: BONES: There is no cortical discontinuity or trabecular irregularity to suggest fracture. The bones are in normal alignment. SOFT TISSUES: The soft tissues are unremarkable. IMPRESSION: No acute osseous abnormality. THIS IS AN ELECTRONICALLY VERIFIED FINAL REPORT 07/13/2024 10:40 PM - Electronically signed by Denisse Otoole M.D. SN T: Report ID: [id number] Reading Location: [id number] Procedure Note Denisse Otoole MD - 07/13/2024 EXAM DESCRIPTION: XR TIBIA FIBULA RIGHT2 VIEWS REASON FOR STUDY: pain Pt fell tonight at work, landed on Right side sanabria, painful with movement TECHNIQUE: AP and lateral radiographic views of the right tibia andfibula . COMPARISON: None. FINDINGS: BONES: There is no cortical discontinuity or trabecular irregularity to suggest fracture. The bones are in normal alignment. SOFT TISSUES: The soft tissues are unremarkable. IMPRESSION: No acute osseous abnormality. THIS IS AN ELECTRONICALLY VERIFIED FINAL REPORT 07/13/2024 10:40 PM - Electronically signed by Denisse Otoole M.D. 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 Pt reports head impact w/o LOC, denies anticoagulant use, reports pain to left ankle and knee, pt ambulatory to triage. TECHNIQUE: 3 radiographic view(s) of the left ankle . COMPARISON: None FINDINGS: BONES/JOINTS: There is no acute fracture, malalignment or osseous abnormality. The joint spaces are normal. SOFT TISSUES: Within normal limits. IMPRESSION: No acute osseous abnormality. THIS IS AN ELECTRONICALLY VERIFIED FINAL REPORT 07/13/2024 8:56 PM - Electronically signed by Divine Cortes M.D. FT T: Report ID: [id number] Reading Location: [id number] Procedure Note Divine Solorio MD - 07/13/2024 EXAM DESCRIPTION: XR ANKLE LEFT 3 OR MORE VIEWS REASON FOR STUDY: pain Pt states I was at work and got my left leg tangled up in a call light, I fell back and landed on my butt and when I hit I got flung back and hit my head on the wall. Pt reports head impact w/o LOC, deniesanticoagulant use, reports pain to left ankle and knee, pt ambulatory to triage. TECHNIQUE: 3 radiographic view(s) of the left ankle . COMPARISON: None FINDINGS: BONES/JOINTS: There is no acute fracture, malalignment orosseous abnormality. The joint spaces are normal. SOFT TISSUES: Within normal limits. IMPRESSION: No acute osseous abnormality. THIS IS AN ELECTRONICALLY VERIFIED FINAL REPORT 07/13/2024 8:56 PM - Electronically signed by Divine Cortes M.D. FT T: Report ID: [id number] Reading Location: [id number] Saranya PERALTA IMG XR PROCEDURES Jocy l Result * XR Knee Left 3 Views (07/13/2024 8:50 PM CDT) Anatomical Region Laterality Modality Lower Extremities, Knee Left Computed Radiography 07/13/2024 8:56 PM CDT Narrative 07/13/2024 8:57 PM CDT EXAM DESCRIPTION: XR KNEE LEFT 3 VIEWS REASON FOR STUDY: left knee Pt states I was at work and got my left leg tangled up in a call light, I fell back and landed on my butt and when I hit I got flung back and hit my head on the wall. Pt reports head impact w/o LOC, denies anticoagulant use, reports pain to left ankle and knee, pt ambulatory to triage. TECHNIQUE: 3 radiographic view(s) of the left knee . COMPARISON: None FINDINGS: BONES/JOINTS: There is no acute fracture, malalignment or osseous abnormality. Postsurgical changes in the left knee. Moderate tricompartmental osteoarthritis of the left knee. SOFT TISSUES: Within normal limits. IMPRESSION: No acute osseous abnormality. THIS IS AN ELECTRONICALLY VERIFIED FINAL REPORT 07/13/2024 8:57 PM - Electronically signed by Divine Cortes M.D. FT T: Report ID: [id number] Reading Location: [id number] Procedure Note Divine Solorio MD - 07/13/2024 EXAM DESCRIPTION: XR KNEE LEFT 3 VIEWS REASON FOR STUDY: left knee Pt states I was at work and got my left leg tangled up in a call light, I fell back and landed on my butt and when I hit I got flung back and hit my head on the wall. Pt reports head impact w/o LOC, deniesanticoagulant use, reports pain to left ankle and knee, pt ambulatory to triage. TECHNIQUE: 3 radiographic view(s) of the left knee . COMPARISON: None FINDINGS: BONES/JOINTS: There is no acute fracture, malalignment orosseous abnormality. Postsurgical changes in the left knee. Moderatetricompartmental osteoarthritis of the left knee. SOFT TISSUES: Within normal limits. IMPRESSION: No acute osseous abnormality. THIS IS AN ELECTRONICALLY VERIFIED FINAL REPORT 07/13/2024 8:57 PM - Electronically signed by Divine Cortes M.D. FT T: Report ID: [id number] Reading Location: [id number] Saranya PERALTA IMG XR PROCEDURES Jocy l Result from Last 3 Months Insurance [facility] EMPLOYEE HEALTH PLANS Address: [facility] [id number] [place] [address] [facility] [place] [address] [place] [phone] Advance Directives For more information, please contact: [phone] * Full Code (Latest Code Status on File) Date Activated Date Inactivated Comments 11/24/2023 10:27 PM 11/27/2023 3:39 PM Care Teams Towerman Relationship Specialty Start Date End Date Mark Anthony Tang MD PCP - General 08/05/20
--- OUTSIDE RECORDS SUMMARY | 2024-08-02 00:31 | XMS_ITS | Clinical Summary ---
Author Organization [facility] Virtual Care Address [address] [place] [phone] Phone Care Team Providers Care Database Admin Name Role Phone Mark Anthony Tang MD Primary Care Provider [phone] Allergies No known active allergies Medications escitalopram [...] Morbid obesity with BMI of 45.0-49.9, adult Encounters Date Type Department Care Team Description 07/13/2024 8:31 PM CDT - 07/13/2024 11:03 PM CDT Emergency [address] [address] Fall, initial encounter (Primary Dx); Head injury, initial encounter; Acute pain of left knee; Acute left ankle pain; Contusion of right lower leg, initial encounter Discharge Disposition: Discharge to home or self care from Last 3 Months Surgical History Surgery Date Site/Laterality Comments TOTAL ABDOMINAL HYSTERECTOMY 04/18/2010 - 04/17/2011 Hysterectomy, total TONSILLECTOMY 04/18/1992 - 04/17/1993 TEAR DUCT SURGERY 1977 - 04/17/1978 SECTION 04/18/2008 - 04/17/20092006,2000 MENISCUS SURGERY 04/18/2013 - 04/17/2014 Left KNEE ARTHROSCOPY W/ ACL RECONSTRUCTION 04/18/1994 - 04/17/1995 COLONOSCOPY 04/18/2017 - 04/17/2018 HERNIA REPAIR 04/18/2019 - 04/17/2020 abdominal hernia OTHER SURGICAL HISTORY 04/18/2019 - 04/17/2020 emergent bowel obstruction KIDNEY STONE SURGERY 04/18/2019 - 04/17/2020 laproscopic procedure KIDNEY STONE SURGERY 04/18/2020 - 04/17/2021 laproscopic procedure ECTOPIC SURGERY 04/18/1999 - 04/17/2000 OTHER SURGICAL HISTORY 04/18/1999 - 04/17/2000 exploratory lap post ectopic DILATION AND CURETTAGE OF UTERUS 04/18/2009 - 04/17/2010 CHOLECYSTECTOMY 04/18/2008 - 04/17/2009 CYSTOSCOPY W/ LASER LITHOTRIPSY 04/18/2018 - 04/17/2019 SLEEVE GASTROPLASTY 04/18/2018 - 04/17/2019 ACHILLES TENDON REPAIR Left Medical History Medical History Date Comments History of calculus of gallbladder History of cholelithiasis Hypertension Hypertension Family History Medical History Relation Name Comments Heart disease Father 2 Cardiovascular disease; Cause of : Cardiovascular disease Heart disease Mother 2 Cardiovascular disease; Cause of : Cardiovascular disease Cancer Other Family history of Cancer, unknown; Diabetes type II Other Family hist ory of Diabetes mellitus type 2; Heart disease Other Family history of Cardiovascular disease; Relation Name Status Comments Father 1 (Age 50) Father 2 Mother 1 (Age 42) Mother 2 Other Social History Tobacco Use Types Packs/Day Years Used Date Smoking Tobacco: Former Cigarettes Q uit: 2008 Smokeless Tobacco: Never Tobacco Cessation:Counseling Given: Not [...] on file 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 Gender Identity Not on file Sexual Orientation Not on file Obstetrics History Last Filed Vital Signs Vital Sign Reading [...] 02/02/2024 12:50 PM CDT Plan of Treatment Health Maintenance Due Date Last Done Comments Breast Cancer Screening-Mammogram 1977 Colon Cancer Screening-Colonoscopy 1977 Depression Screening 1977 Hepatitis C Screening 1977 DTaP/Tdap/Td Vaccine (1 - Tdap) 1988 Hepatitis B Screening 10/17/1995 Regular Well Visit/Exam 18-64 10/17/1995 Covid-19 Vaccine (3 - 2023-2 5 season) 2023 09/23/2020, 04/09/2020 Influenza Vaccine (Season Ended) 2024 01/17/2019, 07/23/2013 HPV Vaccines Aged Out No longer eligi ble based on patient's age to complete this topic Pneumococcal vaccine <65 Aged Out No longer eligible based on patient's age to complete this topic Medical Devices Implanted Type Area Care Program Director Device Identifier Shelf Expiration Date Model / Serial / Lot Screw Left: Knee Explanted Type Area Care Program Director Device Identifier Shelf Expiration Date Model / Serial / Lot O-CODES Universa 6fr 24cm Radiopaque Graduate Firm [employer]ofil[employer] Tether [id number] - [id number] Implanted:Qty: 1 on 11/22/2023 at [facility] Explanted:Qty: 1 on 12/05/2023 by Liudmila Santiago NP Left: Ureter [employer] 07/18/2026 [id number] / / [id number] Procedures Procedure Name Priority Date/Time Associated Diagnosis [...] Denisse Otoole M.D. SN T: Report ID: [id number] Reading Location: [id number] Procedure Note Denisse Otoole MD - 07/13/2024 [...] Denisse Otoole M.D. 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 FT T: Report ID: [id number] Reading Location: [id number] Procedure Note Divine Solorio MD - 07/13/2024 [...] Divine Cortes M.D. FT T: Report ID: [id number] Reading Location: [id number] Saranya PERALTA IMG XR PROCEDURES Jocy l [...] Divine Cortes M.D. FT T: Report ID: [id number] Reading Location: [id number] Procedure Note Divine Solorio MD - 07/13/2024 [...] 07/13/2024 8:57 PM - Electronically signed by Divinedarren Cortes M.D. FT T: Report ID: [id number] Reading Location: [id number] [id number] Saranya PERALTA IMG XR PROCEDURES Jocy l Result from Last 3 Months Insurance [facility] EMPL[employer]EE HEALTH PLANS Address: [facility] [id number] [place] [address] [facility] Advance Directives For more information, please contact: [phone] * Full Code (Latest Code Status on File) Date Activated Date Inactivated Comments 11/24/2023 10:27 PM 11/27/2023 3:39 PM Care Teams Database Admin Relationship Specialty Start Date End Date Mark Anthony Tang MD PCP - General 08/05/20
[2024-08-02 09:07] VITALS: BP 132/79; PULSE 72; RESP 18; TEMP 36.8; O2SAT 98; BMI 38.2
[2024-08-02] MEDS: LACTATED RINGERS 1,000 ML 150 ML IV CONT (09:14)
--- NOTE | 2024-08-02 09:51 | P.PNAN_ITS ---
Anes - Initial Pre Proc Eval Procedure: Operation Date: 08/02/24 10:30 Proposed Procedures p Screening Colonoscopy - Darren Banks MD Date/Time: 08/02/24 09:51 Surgeon: Darren Banks MD Pre Op Diagnosis: Encounter for screening for malignant neoplasm of Patient Data Age: 48 Gender: F Height: 1.6 m Weight: 97.9 kg Last Vital Signs Temp 36.8 C 08/02/24 09:07 Pulse 72 08/02/24 09:07 Resp 18 08/02/24 09:07 BP 132/79 08/02/24 09:07 Pulse Ox 98 08/02/24 09:07 O2 Del Method Room Air 08/02/24 09:07 Allergies Allergy/AdvReac Type Severity Reaction Status Date / Time No Known Allergies Allergy Verified 08/02/24 09:06 Home Medications ?Medication ?Instructions ?Recorded ?Confirmed ?Type escitalopram oxalate 20 mg tablet 20 mg PO DAILY #90 tabs 01/12/24 08/02/24 Rx (Lexapro) temazepam 15 mg capsule 15 mg PO DAILY PRN sleep #30 caps 01/12/24 07/26/24 Rx nystatin 100,000 unit/gram topical 1 applic topical BID #60 grams 07/19/24 08/02/24 Rx powder methocarbamol 500 mg tablet 500 mg PO QHS PRN muscle pain 07/26/24 07/26/24 History Patient hx anesthesia problems: none Family hx anesthesia problems: none Results Review: All pre-operative results and documents have been reviewed as part of the pre- operative evaluation. [facility] Past Medical History Medical History Hematuria Acute flank pain Cough Respiratory crackles Sinusitis Achilles rupture Insomnia Acute bronchitis due to infection Acute left ankle pain Acute pain of left knee Acute pain of right knee Arthralgia of temporomandibular joint, unspecified side Body mass index [BMI] 45.0-49.9, adult (02/02/16) Dietary counseling and surveillance (08/18/17) Dyspnea on exertion Elevated glucose Elevated sed rate Encounter for screening for diabetes mellitus Epigastric abdominal pain Essential (primary) hypertension Excessive sweating Family hx of colon cancer Fatty liver Foreign body in left ear, initial encounter Ganglion cyst Gastroenteritis Hiatal hernia Incisional hernia with obstruction but no gangrene Incisional hernia without obstruction or gangrene Infection Irritable bowel syndrome with diarrhea Left hand pain Left wrist pain Low vitamin D level Lung nodule Mass of left foot Morbid obesity Myalgia and myositis Nodule of finger of right hand Numbness of left hand SHANI (obstructive sleep apnea) Other symptoms and signs involving emotional state Paresthesia Prediabetes RUQ pain Renal cyst Right foot pain Right ovarian cyst Right-sided chest wall pain Routine physical examination Screening for colon cancer Screening for lipid disorders Screening for thyroid disorder Tension headache Thinning hair Umbilical hernia without obstruction and without gangrene Urinary symptom or sign Vitamin B 12 deficiency Weight gain Anxiety Bowel obstruction Surgical History Surgical History History of gastric surgery History of weight loss surgery H/O hernia repair Family History Family History Mother Family history of premature coronary heart disease Hypertension Family history of diabetes mellitus in first degree relative Patient's mother is in good health, Onset Age: 42 Family history of congestive heart failure Grandparent Family history of lung cancer Father Patient's father is in good health, Onset Age: 50 Sibling Hypertension Obesity Other Diabetes mellitus Family history of cardiovascular disease Family history of malignant neoplasm Social History Social History Smoking packs per day: 0.5 Smoking cigarettes per day: 10.0 Years smoked: 10 Smoking pack-years: 5.00 Smoking status: Former smoker Tobacco type: cigarettes and e-cigarettes/vaping Second hand tobacco smoke exposure: No Smoking end date: 04/18/08 Additional smoking assessment comments: currently vapes Alcohol intake: current Drinks per week: 1 Alcohol use details: 2 x per yr Substance use: never Substance use type: does not use Do You Feel Safe in your Home?: Yes Lack of Transportation: No Lack of Food: Never True Current Housing: I Have Housing Concerned About Future Housing: No Difficulty Paying Gas/Electric Bills: No Difficulty Paying for Meds: No Currently Unemployed: No Education: Trade/Vocational Certificate Difficulty w/ Childcare or Family Care: No Living arrangements: with family Occupation/Education: occupation 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 Gender identity (if verbalized by the patient): Female Sexual Orientation (if Verbalized by the Patient): Straight or Heterosexual Spiritual care concerns: No Anes - Eval Final PreProcedure Day of Procedure 08/02/24 09:51 Patient weight: obese Heart: regular rate and rhythm Lungs: clear to auscultation Airway: Mallampati scale class II Neurological: alert and oriented Last oral intake: >/= 8 hours ASA classification: III Emergent: no Anesthetic plan: proceed Anesthesia type and monitoring: general GIVS and standard monitoring Results Review: All pre-operative results and documents have been reviewed as part of the pre- operative evaluation. Informed Consent: The patient's anesthetic plan and its attendant risks and benefits were discussed with the patient/family/POA. Questions were solicited and answers provided to the satisfaction of the patient/family/POA.
--- NOTE | 2024-08-02 10:00 | PM.HPGS ---
History of Present Illness History of Present Illness Consent: Risks, benefits, and alternatives have been discussed and questions answered. Patient agrees to proceed with procedure. Chief complaint: Encounter for screening for malignant neoplasm of Narrative: Kesha Downey is a 48 year old female here for colonoscopy, last one 2018, father had colon cancer Review of Systems Review of Systems: All systems reviewed & are unremarkable except as noted in HPI and below PMFSH Past Medical History Medical History (Updated 08/02/24 @ 10:00 by Darren Banks MD) Family history of colon cancer in father Hematuria Acute flank pain Cough Respiratory crackles Sinusitis Achilles rupture Insomnia Acute bronchitis due to infection Acute left ankle pain Acute pain of left knee Acute pain of right knee Arthralgia of temporomandibular joint, unspecified side Body mass index [BMI] 45.0-49.9, adult (02/02/16) Dietary counseling and surveillance (08/18/17) Dyspnea on exertion Elevated glucose Elevated sed rate Encounter for screening for diabetes mellitus Epigastric abdominal pain Essential (primary) hypertension Excessive sweating Family hx of colon cancer Fatty liver Foreign body in left ear, initial encounter Ganglion cyst Gastroenteritis Hiatal hernia Incisional hernia with obstruction but no gangrene Incisional hernia without obstruction or gangrene Infection Irritable bowel syndrome with diarrhea Left hand pain Left wrist pain Low vitamin D level Lung nodule Mass of left foot Morbid obesity Myalgia and myositis Nodule of finger of right hand Numbness of left hand SHANI (obstructive sleep apnea) Other symptoms and signs involving emotional state Paresthesia Prediabetes RUQ pain Renal cyst Right foot pain Right ovarian cyst Right-sided chest wall pain Routine physical examination Screening for colon cancer Screening for lipid disorders Screening for thyroid disorder Tension headache Thinning hair Umbilical hernia without obstruction and without gangrene Urinary symptom or sign Vitamin B 12 deficiency Weight gain Anxiety Bowel obstruction Surgical History Surgical History History of gastric surgery History of weight loss surgery H/O hernia repair Family History Family History Mother Family history of premature coronary heart disease Hypertension Family history of diabetes mellitus in first degree relative Patient's mother is in good health, Onset Age: 42 Family history of congestive heart failure Grandparent Family history of lung cancer Father Patient's father is in good health, Onset Age: 50 Sibling Hypertension Obesity Other Diabetes mellitus Family history of cardiovascular disease Family history of malignant neoplasm Social History Social History Smoking packs per day: 0.5 Smoking cigarettes per day: 10.0 Years smoked: 10 Smoking pack-years: 5.00 Smoking status: Former smoker Tobacco type: cigarettes and e-cigarettes/vaping Second hand tobacco smoke exposure: No Smoking end date: 04/18/08 Additional smoking assessment comments: currently vapes Alcohol intake: current Drinks per week: 1 Alcohol use details: 2 x per yr Substance use: never Substance use type: does not use Do You Feel Safe in your Home?: Yes Lack of Transportation: No Lack of Food: Never True Current Housing: I Have Housing Concerned About Future Housing: No Difficulty Paying Gas/Electric Bills: No Difficulty Paying for Meds: No Currently Unemployed: No Education: Trade/Vocational Certificate Difficulty w/ Childcare or Family Care: No Living arrangements: with family Occupation/Education: occupation Additional occupation/education comments: [employer] Gender identity (if verbalized by the patient): Female Sexual Orientation (if Verbalized by the Patient): Straight or Heterosexual Spiritual care concerns: No Meds Home Medications and Allergies Home Medications ?Medication ?Instructions ?Recorded ?Confirmed ?Type escitalopram oxalate 20 mg tablet 20 mg PO DAILY #90 tabs 01/12/24 08/02/24 Rx (Lexapro) temazepam 15 mg capsule 15 mg PO DAILY PRN sleep #30 caps 01/12/24 07/26/24 Rx nystatin 100,000 unit/gram topical 1 applic topical BID #60 grams 07/19/24 08/02/24 Rx powder methocarbamol 500 mg tablet 500 mg PO QHS PRN muscle pain 07/26/24 07/26/24 History Allergies Allergy/AdvReac Type Severity Reaction Status Date / Time No Known Allergies Allergy Verified 08/02/24 09:06 Vital Signs Vital Signs - 24 hr 08/02/24 09:07 Temperature 98.2 F Pulse Rate 72 Respiratory Rate 18 Blood Pressure 132/79 Pulse Oximetry 98 Oxygen Delivery Room Air Exam Const: General: comfortable and no acute distress HENMT: Face/Nose/Sinus: Normal nares present Eyes: General: appearance normal, both eyes and all related structures Neck: Neck: no JVD Resp: Auscultation: clear to auscultation bilaterally Cardio: Rate: regular rate Rhythm: regular rhythm GI: Inspection: non-distended GI Palp: Yes Soft to palpation Skin: General skin exam: normal color Neuro: General: gait normal Speech: normal speech Extrem: General: normal to inspection Psych: Mental Status: mental status grossly normal Assessment and Plan Assessment and plan (1) Family history of colon cancer in father: Code(s): Z80.0 - Family history of malignant neoplasm of digestive organs Status: Acute Assessment and Plan: colonoscopy
[2024-08-02 10:22] VITALS: BP 131/75; PULSE 62; RESP 15; O2SAT 96
[2024-08-02 10:32] VITALS: BP 126/65; PULSE 68; RESP 19; O2SAT 99
[2024-08-02 10:42] VITALS: BP 134/69; PULSE 54; RESP 14; O2SAT 99
--- NOTE | 2024-08-02 10:57 | SUR.PHASEII ---
Before discharge, pt stated to had abdominal pain that feels like gas discomfort and rated it a 6 out of 10 on a pain scale. Offered patient to speak to with her concerns. Dr came out an addressed the patients abdominal pain and educated the patient. Patient was given the physicians number to reach if abdominal doesn't subside.
== END 2024-08-02 10:59 | disposition home or self-care (01) ==
PROVIDERS: PCP Family Medicine; Referring Provider Nurse Practitioner Family; Visit Provider Internal Medicine Gastroenterology
PROC: 0DJD8ZZ Inspection of Lower Intestinal Tract, Via Natural or Artificial Opening Endoscopic (ICD-10-PCS; CPT 45378; principal; 2024-08-02 10:30)
DX: Z12.11 Encounter for screening for malignant neoplasm of colon (principal); K57.30 Diverticulosis of large intestine without perforation or abscess without bleeding; K64.8 Other hemorrhoids; Z80.0 Family history of malignant neoplasm of digestive organs; F17.290 Nicotine dependence, other tobacco product, uncomplicated; E66.9 Obesity, unspecified; Z68.38 Body mass index [BMI] 38.0-38.9, adult
CPT/HCPCS: 45378; J2003; J2704; J7120